=== PATIENT | male | born 1945 | race Caucasian/White ===

== ENCOUNTER → 2017-01-25 | Outpatient (CLI) | payer BC, MEDICARE ==
[~2017-01-25] MED LIST: ACYC800T PO; ASPI-914 PO; ATOR40TA PO; CLOP75TA PO; LISI2.5T91 PO; METH750T3 PO; METO-482 PO
--- NOTE | 2017-01-25 16:58 | DI ---
EXAM: US VENOUS DUPLEX, LOWER EXT LT LOCATION OF DICTATION: [place] HISTORY: ITS.REASON: M79.89 Other specified soft tissue disorders COMPARISON: No prior studies available for comparison. TECHNIQUE: Multiple real-time grayscale sonographic images were obtained of the left lower extremity with color flow and spectral analysis. FINDINGS: The left common femoral, femoral, deep femoral, popliteal, posterior tibial, and peroneal veins are widely patent without filling defects. These vessels demonstrate normal response to augmentation and compression. There are no abnormal fluid collections within the surrounding soft tissues. IMPRESSION: No evidence for left lower extremity deep venous thrombosis. .
== END ==
LOC: IMA 15:29
DX: M79.89 Other specified soft tissue disorders (principal)

== ENCOUNTER 2017-02-08 12:15 | Inpatient (IN) | payer MEDICARE, BC ==
[~2017-02-08] VITALS: Ht 175.3 cm; Wt 117.2 kg
[~2017-02-08 12:15] MED LIST changes: -CHOL100055 PO; -CINN500C14 PO; -CLOP75TA33 PO; -FURO20TA4 PO; -HYDR-3995 PO; -LISI2.5T2 PO; -METO25TA6 PO; -MULT1TAB69 PO; -SODI1TAB3 PO
--- OUTSIDE RECORDS SUMMARY | 2017-02-08 12:19 | XMS REPORT | Continuity of Care Document ---
Author Author [facility] Organization [facility] Address Unknown Phone Unavailable Support Name Relationship Address Phone ZANA LE MD Caregiver [address] [place] [address] Unavailable ZANA LE MD Caregiver [address] [place] [id number] Unavailable MARYBETH LARIOS MD Caregiver [address] [place] [address] [place] [address] Unavailable VALERIA MONTAÑO Next Of Kin [address] [place] [address] Insurance Providers Guarantor Reno Montaño Address [address] [place] [address] Email [email or web address] [email or web address] Medicare Part A Only Policy Number [id number] Subscriber's Name Reno Montaño Relationship 18 Self Effective Date 10 Payer [place] [employer] Policy Number [id number] Subscriber's Name Valeria Montaño Relationship 01 Spouse Group Number [id number] Effective Date 01 Advance Directives Directive Response Recorded Date/Time Ordered Resuscitation Status Full Code 10/07/16 7:19pm Resuscitation Documents on File No 10/07/16 10:26pm DPOA for Healthcare Only Y 10/08/16 7:31pm Living Will Yes 10/07/16 10:26pm Problems Active Problems Medical Problem Onset Date Status CAD (coronary artery disease) Unknown Chronic Dyslipidemia Unknown Chronic Herpes zoster 10/09/2016 Acute History of diverticulosis Unknown Hx of hydrocele Unknown Hypertension Unknown Chronic Hyponatremia Unknown Resolved Lumbosacral pain Unknown Acute Normocytic anemia Unknown Acute OA (osteoarthritis) Unknown Chronic Obesity (BMI 30-39.9) Unknown Chronic Overactive bladder Unknown Resolved Somatic dysfunction of spine, lumbar Unknown Acute Surgical Problem Onset Date Status History of discectomy Unknown Acute S/P spinal fusion Unknown Acute Medications Current Home Medications Medication Dose Units Route Directions Days Qty Instructions Start Date Acyclovir 800 Mg Tablet 800 Mg Oral 5 Times Daily 7 Days 35 Tablet Aspirin (Low Dose Aspirin Ec) 81 Mg Tablet. 1 Tab Oral Daily 30 Tablet 10/07/16 Atorvastatin Calcium (Lipitor) 40 Mg Tablet 1 Tab Oral Bedtime Clopidogrel Bisulfate (Plavix) 75 Mg Tablet 1 Tab Oral Daily 30 Tablet 10/12/16 Lisinopril (Zestril) 2.5 Mg Tablet 1 Tab Oral Daily 04/28/16 Methocarbamol 750 Mg Tablet 750 Mg Oral Three Times A Day Take 1 tablet, by mouth, 3 times a day. 10/07/16 Metoprolol Tartrate (Lopressor) 50 Mg Tablet 12.5 Mg Oral Twice A Day 04/28/16 Past Home Medications Medication Directions Ordered Status Aspirin 81 Mg Tab.chew, 81 Mg Oral Daily 01/04/12 Discontinued Cholecalciferol (Vitamin D3) (Vitamin D-400) 400 Unit Tablet, 1 Tab Oral Daily 04/28/16 Discontinued Cinnamon Bark (Cinnamon) 500 Mg Capsule, 500 Mg Oral Daily 01/04/12 Discontinued Ciprofloxacin Hcl (Cipro) 500 Mg Tablet, 500 Mg Oral Every 12 Hours 05/01/16 Discontinued Clopidogrel Bisulfate (Plavix) 75 Mg Tablet, 1 Tab Oral Daily 04/29/16 Discontinued Enoxaparin Sodium (Lovenox) 120 Mg/0.8 Ml Inj, 1 Unit Sub-Q Daily 04/29/16 Discontinued Hydrocodone/Acetaminophen ([place] 10-325 Tablet) 10-325 Tablet, 1 Tab Oral Every 4-6 Hours as needed for Pain 10/07/16 Discontinued Hydrocodone/Apap 7.5/325 Mg ([place] 7.5-325 Tablet) 7.5-325 Tablet, 1-2 Tab Oral Every 4-6 Hours 05/01/16 Discontinued Nitroglycerin (Nitrostat) 0.4 Mg Tablet, 0.4 Mg Sublingual Q5mprn 04/28/16 Discontinued Tadalafil (Cialis) 5 Mg Tablet, 1 Tab Oral Daily 04/28/16 Discontinued Social History Social History Problem Response Recorded Date/Time Onset Date Status Reason for Hospitalization postop pain, strengthening, skin rash 10/12/2016 6 :01pm Not Applicable Not Applicable Hx Substance Use No 01/04/2012 9:20am Not Applicable Not Applicable Hx Alcohol Use No 04/30/2016 10:21am Not Applicable Not Applicable Has the pt used tobacco in the last 12 months No 10/07/2016 10:28pm Not Applicable Not Applicable Query Response Start Date Stop Date Smoking Status Former smoker Hospital Discharge Instructions Instructions: Care Instructions: Reason for Hospitalization: postop pain, strengthening, skin rash I was in the hospital because (patient own words): Cause I had a pinched nerve and they fastened my vertebre. Discharge Diet: regular Discharge Activity: As tolerated Follow Up Appointments: Dr. Patricia Larios on 10/27/16 at 1:45 pm for Hosp. follow-up. [address] [place] [address] Ila Ramos on 10/19/16 at 11:30 am for [address] check. [facility] [address] [place] [address]. . Pending Lab / Results: Will be notified Patient Instructions: Follow-up as instructed Wound/Incision Care: May take bandage off at home, call daily to IRU at [phone] to check on culture results. Pain Management/Treatment: Patient has pain medication at home, declined prescription on discharge. Expected Signs/Symptoms: Pain, fatigue Notify Physician If: Fever During Business Hours:: Please call the physician's office at office After Business Hours:: Please call [phone] and have the switchboard operator receptionist page the physician. Condition at time of discharge: Good Plan of Care Discharge Date 10/12/16 6:20pm Disposition 01 DISCHARGED HOME, SELF-CARE Instructions/Education Provided Venu Coronary Artery Bypass Grafting Prescriptions See Medication Section Additional Instructions/Education Follow up with your regular physician next week Please call if you have any questions or concerns Care Plan and Goals See Discharge Instructions Section Functional Status Query Response Date Recorded Mobility Status Ambulatory w/assist October 12, 2016 6:01pm Assistive Devices Front Wheeled Walker October 12, 2016 6:01pm Activity Limitations Weakness October 12, 2016 6:01pm Feeding Ability Independent October 12, 2016 6:01pm Toileting Ability Assist October 10, 2016 5:25pm Grooming Ability Assist October 12, 2016 6:01pm Dressing Ability Assist October 12, 2016 6:01pm Driving Ability Dependent October 12, 2016 6:01pm Housework Ability Dependent October 12, 2016 6:01pm Meal Preparation Ability Dependent October 12, 2016 6:01pm Stair Climbing Ability Assist October 12, 2016 6:01pm Ability to complete ADL's impeded by Impaired Mobility October 12, 2016 6:01pm Cognitive/Perceptual Impairments Impaired vision October 12, 2016 6:01pm Visual Assistive Devices Glasses With patient October 10, 2016 5:25pm Preferred Method of Learning Reading Demonstration Listening October 10, 2016 5:25pm Allergies, Adverse Reactions, Alerts Allergen Type Severity Reaction Status Last Updated Morphine Adverse Reaction Unknown LETHARGY Active 04/29/16 Amoxicillin Allergy Unknown rash Active 04/29/16 Immunizations Query Response on File Recorded Date/Time Hx Influenza Vaccination Yes 10/07/16 10:28pm Hx Pneumococcal Vaccination Yes 10/07/16 10:28pm Hx Influenza Vaccination Yes 10/07/16 10:28pm Influenza Vaccine Hx FALL 201405/01/16 7:45am Vital Signs Acute Vital Signs Vital Response Date/Time Temperature (Fahrenheit) 98.2 deg F (96.8 - 99.1) 10/12/2016 6:46pm Temperature (Calculated Celsius) 36.66601 degrees C (36.0 - 37.3) 10/12/2016 6:46pm Pulse Rate (adult) 93 bpm (60 - 100) 10/12/2016 6:46pm Respiratory Rate 16 breaths/min (10 - 20) 10/12/2016 6:46pm O2 Sat by Pulse Oximetry 96 % (90 - 100) 10/12/2016 6:46pm Oxygen Delivery Method Room Air 10/11/2016 4:59pm Oxygen Delivery Method Room Air 10/12/2016 6:46pm Oxygen Flow Rate 1.00 L/min 10/12/2016 2:44am Fraction of Inspired Oxygen (FIO2) 28 % 10/11/2016 4:57am Blood Pressure 150/71 mm Hg 10/12/2016 6:46pm Blood Pressure Source Automatic Cuff 10/12/2016 6:46pm Height (Feet) 5 feet 10/12/2016 3:15pm Height (Inches) 10.00 inches 10/12/2016 3:15pm Weight (Kilograms) 119.000 kg 10/07/2016 8:08pm Body Mass Index (BMI) 37.6 10/07/2016 8:08pm Results Laboratory Results Test Name Result Units Flags Reference Collection Date/Time Result Date/ Time Comments White Blood Count 7.8 T/MM3 4.5-11.0 10/10/2016 5:40am 10/10/2016 5: 53am Red Blood Count 3.47 M/MM3 L 4.50-5.90 10/10/2016 5:40am 10/10/2016 5: 53am Hemoglobin 10.2 GM/DL L 13.5-17.5 10/10/2016 5:40am 10/10/2016 5:53am Hematocrit 31.0 % L 41-53 10/10/2016 5:40am 10/10/2016 5:53am Mean Corpuscular Volume 89.3 UM3 80-100 10/10/2016 5:40am 10/10/2016 5: 53am Mean Corpuscular Hemoglobin 29.4 UUG 26-34 10/10/2016 5:40am 2015 5:53am Mean Corpuscular Hemoglobin Concent 32.9 GM/DL 31-37 10/10/2016 5:40am 10/10/2016 5:53am RDW Standard Deviation 44.2 FL 36.9-50.2 10/10/2016 5:40am 10/10/2016 5 :53am Platelet Count 198 T/MM3 130-400 10/10/2016 5:40am 10/10/2016 5:53am Mean Platelet Volume 9.4 UM3 9.4-12.4 10/10/2016 5:40am 10/10/2016 5: 53am Neutrophils (%) (Auto) 73.3 % H 33-66 10/10/2016 5:40am 10/10/2016 5: 53am Lymphocytes (%) (Auto) 11.7 % L 23-45 10/10/2016 5:40am 10/10/2016 5: 53am Monocytes (%) (Auto) 11.4 % H 0-9.0 10/10/2016 5:40am 10/10/2016 5:53am Eosinophils (%) (Auto) 2.9 % 0-4 10/10/2016 5:40am 10/10/2016 5:53am Basophils (%) (Auto) 0.3 % 0-2 10/10/2016 5:40am 10/10/2016 5:53am Immature Granulocyte % (Auto) 0.4 % 0.0-0.5 10/10/2016 5:40am 2015 5:53am Absolute Neutrophils (auto) 5.8 T/MM3 1.8-7.7 10/10/2016 5:40am 2015 5:53am Absolute Lymphocytes (auto) 0.9 T/MM3 L 1-4.8 10/10/2016 5:40am 2015 5:53am Absolute Monocytes (auto) 0.9 T/MM3 H 0-0.8 10/10/2016 5:40am 2015 5:53am Absolute Eosinophils (auto) 0.2 T/MM3 0-0.5 10/10/2016 5:40am 2015 5:53am Absolute Basophils (auto) 0.0 T/MM3 0-0.2 10/10/2016 5:40am 10/10/2016 5:53am Absolute Immature Granulocyte (auto 0.03 T/MM3 0.00-0.03 10/10/2016 5: 40am 10/10/2016 5:53am Icterus Index < 2 0-7 10/10/2016 5:40am 10/10/2016 6:05am Chemistry Specimen Hemolysis < 15 0-25 10/10/2016 5:40am 10/10/2016 6 :05am 0-25: Specimen Exhibited No Hemolysis. Turbidity < 20 0-20 10/10/2016 5:40am 10/10/2016 6:05am Sodium Level 135 MEQ/L 134-144 10/10/2016 5:40am 10/10/2016 6:26am Potassium Level 4.3 MEQ/L 3.6-5 10/10/2016 5:40am 10/10/2016 6:26am Chloride Level 93 MEQ/L L 98-107 10/10/2016 5:40am 10/10/2016 6:26am Carbon Dioxide Level 36 MEQ/L H 22-30 10/10/2016 5:40am 10/10/2016 6: 05am Anion Gap 6 MEQ/L 5-15 10/10/2016 5:40am 10/10/2016 6:26am Blood Urea Nitrogen 9.0 MG/DL 9-10/10/2016 5:40am 10/10/2016 6:05am Creatinine 0.5 MG/DL L 0.8-1.5 10/10/2016 5:40am 10/10/2016 6:05am BUN/Creatinine Ratio 18 RATIO 6-10/10/2016 5:40am 10/10/2016 6:05am Glomerular Filtration Rate Calc 164 10/10/2016 5:40am 10/10/2016 6: 05am Glucose Level 109 MG/DL 75-110 10/10/2016 5:40am 10/10/2016 6:05am Calculated Osmolality 260 MOSM/KG L 261-280 10/10/2016 5:40am 2015 6:26am Calcium Level 8.2 MG/DL L 8.4-10.2 10/10/2016 5:40am 10/10/2016 6:05am Varicella-Zoster Virus Source VARDNARS 10/10/2016 7:00pm 2015 12:39pm Varicella-Zoster PCR, CSF/Dermal performed at [facility], [address] [place] [address] Die Drawing Checker Varun Ross MD Name: RENO MONTAÑO Unit #: [id number] : 1945 Sex: M DISCHARGE SUMMARY Admit Date: 10/07/16 Report #: [id number] [facility] General Date Date DATE: 10/12/16 TIME: 16:54 Attending Physician Zana Le MD Admitting Physician Zana Le MD Consulting Physician Ronen Martini MD Admitting Diagnosis HTN, Indwelling bernal Discharge Diagnosis Status post lumbar fusion, hypertension, rash unknown origin History of Present Illness 71-year-old male status post L2-L5 laminectomy and L5-S1 fusion due to progressive weakness and pain in left leg and foot. He was accepted for IRU treatment after evaluation due to significant postop weakness, coronary artery disease, hypertension. He has spinal cord dysfunction due to issues prior to the surgery and is in need of close medical and physical/occupational therapy supervision during recovery. Committed to 3 hours a day of therapy Hospital Course 10/09/2016 Patient unfortunately appears to have had an outbreak of shingles. I just physical therapy if needed based on contact precautions, although I don't see any need beyond that at this point. However we'll speak with infection control. We'll increased pain medication if needed. Zana Le M.D. 10/10/16 Obtain viral varicella culture of rash to evaluate if this is a shingles type of lesion. It is somewhat atypical as patient does not have any discomfort to this area. also verbalizes that she has a similar area on her Botox that is intermittent At this time we will continue with acyclovir 800 milligrams 5 times a day. Continue on precautions today will discuss further with infectious disease tomorrow regarding patient's ability to to leave the room for PT. Have asked nursing staff to keep rash covered at all times and change dressing daily. Continue to encourage work with PT and OT for ongoing strengthening. 10/11/16 Have nursing staff keep dressing over vesicles on right buttock. May change dressing daily. Viral culture swab pending results.Spoke with infectious disease and patient is able to be out of room for PT/OT as long as vesicles are closed and covered. Will continue with treatment of acyclovir 800 milligrams 5 times a day. Blood pressure remains stable. Continue with [place] and Robaxin for pain control. Continue to encourage work with PT and OT for ongoing strengthening. 10/12/2016 Still awaiting PCR result from varicella-zoster swab. Uncertain if this is shingles outbreak or not, but will follow precautions until documented other way. Patient is doing well with physical therapy continues to cooperate and improve. Zana Le M.D. Problems: Code Status Full Code Home Meds Reported Medications Methocarbamol (Methocarbamol) 750 Mg Tablet, 750 MG PO TID, TAB Take 1 tablet, by mouth, 3 times a day. 10/07/16 Hydrocodone/Acetaminophen ([place] 10-325 Tablet) 10-325 Tablet, 1 TAB PO Q4-6H Y for PAIN, TAB 10/07/16 Aspirin *EC* (Low Dose Aspirin EC) 81 Mg Tablet.dr, 1 TAB PO DAILY, #30 TAB 3 Refills 10/07/16 Clopidogrel Bisulfate (Plavix) 75 Mg Tablet, 1 TAB PO DAILY, TAB 04/29/16 Lisinopril (Zestril) 2.5 Mg Tablet, 1 TAB PO DAILY, TAB 04/28/16 Metoprolol Tartrate (Lopressor) 50 Mg Tablet, 12.5 MG PO BID 04/28/16 Atorvastatin Calcium (Lipitor) 40 Mg Tablet, 1 TAB PO HS, TAB 04/28/16 Discontinued Reported Medications Enoxaparin Sodium (Lovenox) 120 Mg/0.8 Ml Inj, 1 UNIT SQ DAILY 04/29/16 Cholecalciferol (Vitamin D3) (Vitamin D-400) 400 Unit Tablet, 1 TAB PO DAILY 04/28/16 Nitroglycerin (Nitrostat) 0.4 Mg Tablet, 0.4 MG SL Q5MPRN, TAB 04/28/16 Tadalafil (Cialis) 5 Mg Tablet, 1 TAB PO DAILY 04/28/16 Cinnamon Bark (Cinnamon) 500 Mg Capsule, 500 MG PO DAILY 01/04/12 Discontinued Scripts Hydrocodone/Apap 7.5/325 Mg ([place] 7.5-325 Tablet) 7.5-325 Tablet, 1-2 TAB PO Q4 -6H, #30 TAB Prov:DINORAH TAN APRN, PHD 05/01/16 Ciprofloxacin HCl (Cipro) 500 Mg Tablet, 500 MG PO Q12HR for 10 Days, #20 TAB Prov:DINORAH TAN APRN, PHD 05/01/16 Discharge Disposition Stable, discharged to home ZANA LE MD Oct 12, 2016 16:55 Procedures Procedure Status Date Provider(s) CT LUMBAR SPINE W/O DYE Completed 09/06/16 X-RAY EXAM L-S SPINE 2/3 VWS Completed 09/28/16 Encounters Encounter Location Arrival/Admit Date Discharge/Depart Date Attending Provider Discharged Inpatient [facility] 10/07/16 5:05pm 10/12/16 6:20pm ZANA LE MD Registered [facility] 09/28/16 2:31pm BARI RAMOS Registered [facility] 09/06/16 12:41pm BARI RAMOS
--- OUTSIDE RECORDS SUMMARY | 2017-02-08 12:19 | XMS REPORT | Referral Summary ---
Author Author [facility] Organization [facility] Address Unknown Phone Unavailable Care Team Providers Care Gas Leak Inspector Name Role Phone Kiko Larios Primary Care Physician [phone] Encounter [facility] [id number] Date(s): 09/07/16 - 09/07/16 [facility] [address] [place] [address]- Discharge Diagnosis: Herniated lumbar intervertebral disc Discharge Diagnosis: Central spinal stenosis Discharge Disposition: 01-Home or Self Care Attending Physician: Isacc Larios MD Admitting Physician: Isacc Larios MD Referring Physician: Noam Anthony MD Vital Signs Most recent to 1 oldest [Reference Range]: Blood Pressure 154/76 mmHg [90-140/60-90 mmHg] *HI* (09/07/16 9:13 AM) Problem List Condition Effective Dates Status Health Status Informant Acute Active pain(Confirmed) At risk for Active infection(Confirmed) 1 Cellulitis of Active elbow(Confirmed) Chicken Resolved pox(Confirmed) Diverticulosis of Resolved colon(Confirmed) Hydrocele(Confirmed) Resolved Hyperlipidemia(Confi Resolved rmed) Impaired skin Active integrity(Confirmed) 2 Inguinal Resolved hernia(Confirmed) Obesity(Confirmed) Active patient Overactive Resolved bladder(Confirmed) Overweight(Confirmed Resolved ) Herniated lumbar Active intervertebral disc(Confirmed) Encounter for Active prostate cancer screening(Confirmed) CAD (coronary artery Active disease) of artery bypass graft(Confirmed) Central spinal Active stenosis(Confirmed) 1Problem added automatically by system based on initiation of At Risk for Infection in Nutrition Plan of Care 2Problem added automatically by system based on initiation of Impaired Skin Integrity Plan of Care Allergies, Adverse Reactions, Alerts Substance Reaction Severity Status amoxicillin rash Active Medications aspirin 81 mg oral tablet, chewable 1 tabs, Oral, Daily, 0 Refill(s) Start Date: 07/19/14 Status: Ordered atorvastatin 40 mg oral tablet See Instructions, TAKE ONE TABLET BY MOUTH DAILY, # 90 tabs, 1 Refill(s), eRx: [facility] #[id number], TAKE ONE TABLET BY MOUTH DAILY Start Date: 09/01/16 Status: Ordered cinnamon mg, Oral, Daily, 0 Refill(s) Start Date: 05/28/14 Status: Ordered clopidogrel 75 mg oral tablet 75 mg 1 tabs, Oral, Daily, 0 Refill(s) Start Date: 05/24/16 Status: Ordered Lopressor 12.5 mg, Oral, BID, 0 Refill(s) Start Date: 07/19/14 Status: Ordered methocarbamol 750 mg oral tablet See Instructions, TAKE ONE TABLET BY MOUTH THREE TIMES A DAY, # 60 tabs, eRx: [facility] #[id number], TAKE ONE TABLET BY MOUTH THREE TIMES A DAY Start Date: 08/18/16 Status: Ordered Nitrostat 0.4 mg sublingual tablet 1 tabs, SubLingual, q5min, Angina/Chest Pain, 0 Refill(s) Start Date: 07/19/14 Status: Ordered [place] 10 mg-325 mg oral tablet 1 tabs, Oral, q4hr, as needed for pain, # 120 tabs, 0 Refill(s) Start Date: 08/25/16 Status: Ordered Vitamin B12 Oral, Daily, 0 Refill(s) Start Date: 05/28/14 Status: Ordered Vitamin D with Minerals oral tablet tabs, Oral, Daily, 0 Refill(s) Start Date: 05/28/14 Status: Ordered Vitamin D3 1000 intl units oral tablet 1,000 Intl_Units 1 tabs, Oral, Daily, # 30 tabs, 0 Refill(s) Start Date: 08/03/16 Status: Ordered Zestril 2.5 mg oral tablet 1 tabs, Oral, Daily, 0 Refill(s) Start Date: 07/19/14 Status: Ordered Results No data available for this section Immunizations Vaccine Date Refusal Reason tetanus/diphth/pertuss (Tdap) adult/adol1 07/23/15 influenza virus vaccine, inactivated2 07/15/15 influenza virus vaccine, live 08/15/13 influenza virus vaccine, live 12/01/12 pneumococcal 13-valent conjugate vaccine3 07/15/15 tetanus-diphth toxoids (Td) adult/adol 10/25/94 zoster vaccine live 09/20/13 1Location History: [facility] 2Location History: [facility] 3Location History: [facility] Procedures Procedure Date Related Diagnosis Body Site Colonoscopy1 01/06/12 Adenoidectomy Circumcision Knee replacement Knee replacement Left Tonsillectomy 1Normal few scattered diverticula with in sigmoid repeat in 10 yrs Social History Social History Type Response Smoking Status Former smoker; Type: Cigarettes Assessment and Plan No data available for this section
--- OUTSIDE RECORDS SUMMARY | 2017-02-08 12:19 | XMS REPORT | Continuity of Care Document ---
Author Author [facility] Organization [facility] Address Unknown Phone Unavailable Allergies Active Description Code Type Severity Reaction Onset Reported/Identified Relationship to Patient Clinical Status Yes amoxicillin NKMA N/A rash 03/14/2014 Yes AMOXICILLIN 86752 Skin Rashes/Hives 09/29/2016 Medications Medication Packaging Start Date Stop Date Route Dosage Sig * DONT RECONCILE--CHANGE PENDING EA 09/30/2016 10/04/2016 PO PRN LACTATED RINGERS 1000 ML IV SOLN BAG 10/04/2016 10/04/2016 IV PRE-OP ceFAZolin 1GM VIAL VL 10/04/2016 10/04/2016 IVP PRE-OP BACITRACIN 500 UNIT/GM OINT [0.9GM U.D.] PKT 10/04/20162015 TOP ONCE SODIUM CHLORIDE PF 0.9% 10ML INJ VL 10/04/2016 10/04/2016 IVP ONCE LACTATED RINGERS 1000 ML IV SOLN BAG 10/04/2016 10/04/2016 IV ONCE THROMBIN 5000 UNIT VIAL VL 10/04/2016 10/04/2016 TOP ONCE SODIUM CHLORIDE 0.9% 1000ML IRRIG SOLN EA 10/04/20162015 IRR ONCE VANCOMYCIN 1GM INJ VL 10/04/2016 10/04/2016 PB ONCE ceFAZolin 1GM VIAL VL 10/04/2016 10/04/2016 IVP ONCE BUPIVACAINE W/ EPI 0.25% INJ [10 ML] VL 10/04/2016 10/04/2016 ID ONCE fentaNYL 100 MCG/2ML INJ AMP 10/04/2016 10/04/2016 IV PRE-OP * Ready to Reconcile EA 10/04/2016 10/04/2016 PO ASDIR SODIUM CHLORIDE 0.9% 10ML FLUSH SYRINGE SYR 10/04/20162016 IVP BID&0900,2100 POLYETHYLENE GLYCOL 17GM PKT PKT 10/04/2016 10/04/2017 PO QD& 0900 DOCUSATE SODIUM 100MG CAPSULE CAP 10/04/2016 10/04/2017 PO BID& 0900,2100 THROMBIN 5000 UNIT VIAL VL 10/04/2016 10/04/2016 TOP ONCE BUPIVACAINE W/ EPI 0.25% INJ [10 ML] VL 10/04/2016 10/04/2016 ID ONCE hydroMORPHONE 2MG/1ML INJ ML 10/04/2016 10/04/2016 IV POST-OP NALOXONE 0.4MG/1ML VIAL VL 10/04/2016 10/04/2016 IVP ONCE ALBUTEROL SULFATE 2.5MG/3ML VL 10/04/2016 10/04/2016 AER ONCE GLYCOPYRROLATE 0.2 MG/1ML INJ VL 10/04/2016 10/04/2016 IVP ONCE NEOSTIGMINE 10MG/10ML INJ [1:1000] VL 10/04/2016 10/04/2016 IVP ONCE fentaNYL 250 MCG/5ML INJ AMP 10/04/2016 10/04/2016 IV ONCE LIDOCAINE 2% SYRINGE [100MG/5ML] SYR 10/04/2016 10/04/2016 IVP ONCE PROPOFOL 200MG/20ML INJ VL 10/04/2016 10/04/2016 IVP ONCE ONDANSETRON 4MG/2ML INJ VL 10/04/2016 10/04/2016 IVP ONCE ROCURONIUM 50MG/5ML INJ VL 10/04/2016 10/04/2016 IVP ONCE PHENYLEPHRINE 10 MG/1ML INJ VL 10/04/2016 10/04/2016 IVP ONCE ePHEDrine 20MG/2ML SYRINGE (COMPOUNDED) DOS 10/04/20162015 IVP ONCE SODIUM CHLORIDE 0.9% 10ML FLUSH SYRINGE SYR 10/04/20162016 IVP PRN SODIUM CHLORIDE 0.9% 5ML FLUSH SYRINGE SYR 10/04/20162016 IVP PRN SODIUM CHLORIDE 0.9% W/ KCL 20MEQ 1000ML IV SOLN BAG 10/04/2016 10/06/2016 IV 100ML/HR MORPHINE 30 MG / 30 ML OBSTETRICS TEACHER SYRINGE SYR 10/04/2016 10/06/2016 IV PRN MAGNESIUM HYDROXIDE 2400MG/30ML SUSP EA 10/04/2016 10/04/2017 PO PRN oxyCODONE IR 5MG TABLET TAB 10/04/2016 10/06/2016 PO [id number] BISACODYL 10MG SUPPOS. SUP 10/04/2016 10/04/2017 MN* PRN ONDANSETRON 4MG TABLET TAB 10/04/2016 10/04/2017 PO [id number] METOCLOPRAMIDE 10MG TABLET TAB 10/04/2016 10/04/2017 PO [id number] METHOCARBAMOL 750MG TABLET TAB 10/04/2016 10/04/2017 PO D6OIOQT diphenhydrAMINE 25MG CAPSULE CAP 10/04/2016 10/04/2017 PO Q6HPRN BISACODYL 5MG TABLET TAB 10/04/2016 10/04/2017 PO PRN ONDANSETRON 4MG/2ML INJ VL 10/04/2016 10/04/2017 IVP [id number] METOCLOPRAMIDE 10MG/2ML INJ VL 10/04/2016 10/04/2017 IVP [id number] NALOXONE 0.4MG/1ML VIAL VL 10/04/2016 10/04/2016 IV POST-OP ALBUTEROL SULFATE 2.5MG/3ML VL 10/04/2016 10/04/2016 AER POST- OP *LISINOPRIL 2.5MG TABLET 10/04/2016 10/04/2017 PO QD&0900 *ATORVASTATIN 40MG TABLET TAB 10/04/2016 10/04/2017 PO HS&2200 *METOPROLOL TARTRATE 25MG TABLET TAB 10/04/2016 10/04/2017 PO BID&0900,2100 *DOCUSATE SODIUM 100MG CAPSULE CAP 10/04/2016 10/04/2017 PO ASDIR ACETAMINOPHEN IV 1GM/100ML VL 10/04/2016 10/05/2016 PB Q6H&0000 ,0600,1200,1800 ceFAZolin 1GM VIAL VL 10/04/2016 10/04/2016 IVP Q6H&0000,0600, 1200,1800 LACTATED RINGERS 1000 ML IV SOLN BAG 10/04/2016 10/04/2016 IV ONCE LACTATED RINGERS 1000 ML IV SOLN BAG 10/04/2016 10/04/2016 IV PRE-OP ceFAZolin 1GM VIAL VL 10/04/2016 10/05/2016 IVP Q6H&0400,1000, 1600,2200 MAGNESIUM OXIDE 400MG TABLET TAB 10/05/2016 10/05/2017 PO BID& 0900,2100 ACETAMINOPHEN 325MG TABLET TAB 10/05/2016 10/05/2017 PO Q4HPRN ACETAMINOPHEN 325MG TABLET TAB 10/05/2016 10/05/2016 PO ONCE oxyCODONE/ACETAMINOPHEN 5-325 MG TABLET TAB 10/06/20162016 PO [id number] MORPHINE 2 MG/1ML SYRINGE ML 10/06/2016 10/06/2017 IVP [id number] *LISINOPRIL 10MG TABLET TAB 10/30/2016 10/04/2016 PO QD&0900 *HYDROcodone/ACETAMINOPHEN 10-325 MG TABLET TAB 10/30/2016 PO Q4-6HPRN *ASPIRIN EC 81MG TABLET TAB 10/30/2016 10/30/2017 PO QD&0900 *OTC/HERBAL SUPPLEMENTS EA 10/30/2016 10/30/2017 PO ASDIR *ATORVASTATIN 40MG TABLET TAB 10/30/2016 10/04/2016 PO QD&0900 *METOPROLOL TARTRATE 25MG TABLET TAB 10/30/2016 10/04/2016 PO BID&0900,2100 *METHOCARBAMOL 750MG TABLET TAB 10/30/2016 10/30/2017 PO TID& 0900,1500,2200 *CLOPIDOGREL 75MG TABLET TAB 10/30/2016 10/30/2017 PO QD&0900 *LISINOPRIL 2.5MG TABLET 11/03/2016 10/04/2016 PO QD&0900 *ATORVASTATIN 40MG TABLET TAB 11/03/2016 10/04/2016 PO HS&2200 *DOCUSATE SODIUM 100MG CAPSULE CAP 11/03/2016 10/04/2016 PO ASDIR Problems Date Dx Coded Attending Type Code Diagnosis Diagnosed By 10/07/2016 KAMILLE RAMOS DF E66.9 Obesity, unspecified 10/07/2016 KAMILLE RAMOS DF E78.5 Hyperlipidemia, unspecified 10/07/2016 KAMILLE RAMOS DF E83.42 Hypomagnesemia 10/07/2016 KAMILLE RAMOS DF I10 Essential (primary) hypertension 10/07/2016 KAMILLE RAMOS I25.811 Atherosclerosis of [place] coronary arter 10/07/2016 KAMILLE RAMOS DF M19.90 Unspecified osteoarthritis, unspecified 10/07/2016 KAMILLE RAMOS DF M43.17 Spondylolisthesis, lumbosacral region 10/07/2016 RICHARD, KAMILLE DF M48.06 Spinal stenosis, lumbar region 10/07/2016 [facility], KAMILLE DF M51.26 Other intervertebral disc displacement, 10/07/2016 RICHARD, KAMILLE DF M51.27 Other intervertebral disc displacement, 10/07/2016 RICHARD, KAMILLE DF R60.9 Edema, unspecified 10/07/2016 RICHARD, KAMILLE DF 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 10/07/2016 [facility], KAMILLE DF Z79.899 Other fci (current) drug therapy 10/07/2016 [facility], KAMILLE DF Z95.5 Presence of coronary angioplasty implant 10/07/2016 [facility], KAMILLE DF Z96.652 Presence of left artificial knee joint Procedures Code Description Performed By Performed On [id number] Release Lumbar Nerve, Open Approach [facility] 10/04/2016 [id number] Excision of Lumbar Vertebral Disc, Open [facility] 10/04/2016 [id number] Fusion of Lumbosacral Joint, Posterior A [facility] 10/04/2016 Results Test Result Range Comprehensive metabolic 2000 panel - Serum or Plasma - 10/05/16 04:35 Glucose [Mass/volume] in Serum or Plasma 117 mg/dl 64 - 112 Urea nitrogen [Mass/volume] in Serum or Plasma 9.0 mg/dl 8.4 - 25.8 Creatinine [Mass/volume] in Serum or Plasma 0.6 mg/dl 0.7 - 1.2 Urea/Creatinine [Mass Ratio] in Serum or Plasma 15.0 6 - 26 Calcium [Mass/volume] in Serum or Plasma 7.74 mg/dl 8.30 - 10.60 Sodium [Moles/volume] in Serum or Plasma 132 mmol/L 135 - 151 Potassium [Moles/volume] in Serum or Plasma 4.8 mmol/L 3.5 - 5.0 Chloride [Moles/volume] in Serum or Plasma 96 mmol/L 98 - 113 Protein [Mass/volume] in Serum or Plasma 5.3 gm/dl 6.2 - 8.0 Albumin [Mass/volume] in Serum or Plasma 3.3 gm/dl 3.5 - 5.2 Globulin [Mass/volume] in Serum 2.0 gm/dl 2-4 Albumin/Globulin [Mass Ratio] in Serum or Plasma 1.6 1.1-2.4 Alanine aminotransferase [Enzymatic activity/volume] in Serum or Plasma 19 U/L 0 - 55 Alkaline phosphatase [Enzymatic activity/volume] in Serum or Plasma 59 U/L 53 - 128 Bilirubin.total [Mass/volume] in Serum or Plasma 0.75 mg/dl 0.10 - 1.20 Carbon dioxide, total [Moles/volume] in Venous blood 30 mmol /L 23 - 34 Magnesium [Mass/volume] in Serum or Plasma - 10/05/16 04:35 Magnesium [Mass/volume] in Serum or Plasma 1.7 mg/dl 1.8 - 2.6 Message for Lab - 02/08/17 11:11 Message for Lab Done NA i-STAT Metabolic Panel WB - 02/08/17 11:24 BUN Venous 9 mg/dl 4-20 Calcium Ionized Venous 1.12 mmol/L 1.19- 1.41 Creatinine Venous 0.7 mg/dL 0.7-1.2 Glucose Venous 105 mg/dL 70-100 Potassium, WB 4.6 mmol/L 3.6-5.1 Sodium Venous 117 mmol/L 136-144 Total CO2 Venous 32 mmol/L 25-29 Venous CL 74 mmol/L 99-109 Encounters ACCT No. Visit Date/Time Discharge Status Pt. Type Provider Facility Loc./Unit Complaint [id number] 01/31/2017 08:41:00 2016 23:59:00 DIS Outpatient Aaliyah Coello [facility] [place] 4 DAY RCK LAB [id number] 01/25/2017 14:49:00 2016 23:59:00 DIS Outpatient Isacc Larios [facility] [place] Circulation problemsin left leg with swelling [id number] 10/27/2016 13:29:00 2015 23:59:00 DIS Outpatient Isacc Larios [facility] [place] TCPA [facility] 10.13.2016 SPINAL CORD DYSFUNCTION [id number] 09/07/2016 09:03:00 2015 23:59:00 DIS Outpatient Isacc Larios [facility] [place] TCPA PRE OP FOR BACK SURGERY [id number] 09/07/2016 00:01:00 2015 23:59:00 DIS Outpatient Isacc Larios [facility] Mur Card Pre op Z01.818 [id number] 08/03/2016 13:05:00 2015 23:59:00 DIS Outpatient Isacc Larios [facility] [place] MED CHK [id number] 06/25/2016 11:02:00 2015 23:59:00 DIS Outpatient Isacc Larios [facility] [place] tcpa lower back pain [id number] 05/24/2016 15:31:00 2015 23:59:00 DIS Outpatient Tanshahram Brett T [facility] [place] 2 week recheck [id number] 05/10/2016 15:18:00 2015 23:59:00 DIS Outpatient TanBrett omalley T [facility] [place] 1 week recheck [id number] 04/29/2016 09:12:00 2015 23:59:00 DIS Outpatient Isacc Larios [facility] [place] 40mg lovenox [id number] 04/27/2016 09:17:00 2015 23:59:00 DIS Outpatient Isacc Larios [facility] [place] 40mg lovenox [id number] 04/26/2016 09:25:00 2015 23:59:00 DIS Outpatient Isacc Larios [facility] [place] 40mg lovenox [id number] 04/22/2016 11:00:00 2015 23:59:00 DIS Outpatient Tanshahram Brett T [facility] [place] 2 week recheck from 5-26 [id number] 04/08/2016 14:14:00 2015 23:59:00 DIS Outpatient Tanshahram Brett T [facility] [place] ENLARGED TESTICLE [id number] 04/05/2016 13:07:00 2015 23:59:00 DIS Outpatient Isacc Larios [facility] [place] fatigue sleeping alot says not taking norco or cycloben [id number] 01/22/2016 09:29:00 2015 23:59:00 DIS Outpatient Larios, Isacc F [facility] [place] LOWER BACK PAIN [id number] 10/20/2015 14:46:00 2014 23:59:00 DIS Outpatient Aaliyah Coello [facility] [place] Back pain [id number] 10/07/2015 14:47:00 2014 23:59:00 DIS Outpatient Aaliyah Coello [facility] [place] muscle in hip [id number] 07/08/2015 15:11:00 2014 23:59:00 DIS Outpatient Isacc Larios [facility] [place] sore heel [id number] 06/25/2015 17:28:00 2014 23:59:00 DIS Outpatient Abhinav Dueñas [facility] IC LT ELBOW SWOLLEN AND HOT [id number] 12/05/2014 09:01:00 2014 23:59:00 DIS Outpatient Isacc Larios [facility] [place] med check/ cholesterol [id number] 02/08/2017 10:08:00 Document Registration [id number] 05/03/2016 13:05:00 ACT Outpatient Brett Gilmore [facility] [place] POST -OP [id number] 03/14/2015 09:34:00 Document Registration
--- NOTE | 2017-02-08 12:30 | NUR ---
SONJA JIMENEZ IN
--- NOTE | 2017-02-08 12:40 | ERPDOC ---
Departure Disposition Decision Date: Feb 08, 2017 Disposition Decision Time: 14:36 (YODIT AREVALO APRN) Disposition: 02 TO OBS [facility] [place] Impression Impression (JOHNYODIT WALLACE APRN) Impression: Primary Impression: Hypoxia Additional Impression: Hyponatremia Severity: Moderate (JAMES AREVALOA Jovita JIMENEZ) Condition: Stable Seen By: Mid-level only (YODIT AREVALO APRN) Referrals: MARYBETH JALLOH MD (Family) Problems/Meds/Labs Reviewed?: Yes Medications reviewed and manag: Yes (YODIT AREVALO APRN) Follow up care ordered?: Yes Mental Status: Alert (YODIT AREVALO APRN) HPI - Dyspnea General Chief Complaint: Dyspnea/Respdistress Stated Complaint: SHORTNESS OF BREATH Time Seen by Provider: 12:30 Source: patient Exam Limitations: no limitations (YODIT AREVALO APRN) Time Seen by Provider: 12:27 (HAI ALONZO MD) HPI - Dyspnea Initial Comments He presents to ER today for evaluation of SOA and low potassium and sodium. He has been being treated by Dr Ric OLVERA with Lasix to help pull fluid due to CHF. His sodium had been low down to 117 and K+ was low. They had been trying to replace potassium and sodium both orally but was not getting anywhere with this. He has had a cough with sputum production but denies any fever. Is SOA and is currently on O2 at 2L per NC with sats of 94%. Does not wear O2 at home. Was 86% on RA upon arrival to ER. Occurred At: home Onset/Timing: Gradual Severity: moderate Activities at Onset: none Associated Symptoms: cough, shortness of breath, DENIES: chest pain, diaphoresis, fever/chills, headaches, loss of appetite, malaise, nausea/vomiting , rash, seizure, syncope, weakness Aspirin Treatment Today: unknown Hx of Similar Symptoms: No (JAMES AREVALOA Jovita JIMENEZ) Allergies: Coded Allergies: amoxicillin (Verified Allergy, Unknown, rash, 02/08/17) morphine (Verified Adverse Reaction, Unknown, LETHARGY, 02/08/17) Past History Patient Surgical History 10/04/16- L5 laminectomy, multiple microdiscectomy, L5-S1 fusion Coronary artery stents-07/2014 (PTCA) Tonsillectomy Appendectomy. Knee replacement. inguinal hernia repair Angiographically of femoral and other lower extremity arteries- 07/2014 Inguinal hernia repair (NOLD,YODIT N ELASTIC ATTACHER CHAINSTITCH) Past Medical History Metabolic: hypercholesterolemia, hypertension Cardiac: CAD (NOLD,YODIT N ELASTIC ATTACHER CHAINSTITCH) Surgical History General: appendix, hernia, tonsils Joint: knee (NOLD,YODIT N ELASTIC ATTACHER CHAINSTITCH) Vaccines Hx Influenza Vaccination: Yes Hx Pneumococcal Vaccination: Yes (NOLD,YODIT N ELASTIC ATTACHER CHAINSTITCH) Social History Does patient use chewing tobac: No (NOLD,YODIT N ELASTIC ATTACHER CHAINSTITCH) Review of Systems Constitutional Constitutional: DENIES: chills, dizziness, fatigue, fever, weakness (NOLD, YODIT N ELASTIC ATTACHER CHAINSTITCH) Cardiovascular Cardiac: dyspnea on exertion, DENIES: chest pain, orthopnea Rhythm/Rate: DENIES: irregular beat, palpitations Vascular: pedal edema (bilateral LE) (NOLD,YODIT N ELASTIC ATTACHER CHAINSTITCH) Pulmonary Respiratory: cough, dyspnea, sputum, DENIES: pleuritic chest pain (NOLD,YODIT N ELASTIC ATTACHER CHAINSTITCH) GI Upper Abdomen: DENIES: nausea, pain, vomiting Lower Abdomen: DENIES: constipation, diarrhea, pain (NOLD,YODIT N ELASTIC ATTACHER CHAINSTITCH) Integumentary Skin: DENIES: rash (NOLD,YODIT N ELASTIC ATTACHER CHAINSTITCH) Neurological General: DENIES: headache, numbness, tingling, weakness (NOLD,YODIT N ELASTIC ATTACHER CHAINSTITCH) Physical Exam General General Nourishment: well nourished, well developed, appears stated age, no acute distress, adult General Body Habitus: well groomed (NOLD,YODIT N ELASTIC ATTACHER CHAINSTITCH) Vitals and Pain First Documented Vital Signs Date Time Temp Pulse Resp B/P Pulse Ox O2 Delivery O2 Flow Rate FiO2 02/08/17 12:20 98.1 60 36 181/81 86 Room Air 02/08/17 12:27 2.00 (HAI ALONZO MD) Vitals and Pain Weight: Kilograms: 118.000 Height (feet): 5 Height (inches): 10.00 Triage Pain Scale: (NOLD,YODIT N ELASTIC ATTACHER CHAINSTITCH) RN VS reviewed by Provider: Yes (NOLD,YODIT N ELASTIC ATTACHER CHAINSTITCH) Normal Exams: Neck: Full range of motion, without adenopathy, JVD, bruits or thyromegaly Abdomen: Bowel sounds positive, soft, non-tender, non-distended, no hepatosplenomegaly, masses or bruits noted Lymphatic: No lymphadenopathy, or lymphedema noted Integumentary: No rashes, hives, or bruising noted Neurologic: Patient is alert, and oriented Psychiatric: Patient exhibits, appropriate attention, emotion and affect (NOLD,YODIT N ELASTIC ATTACHER CHAINSTITCH) Respiratory (brief) Respiratory: FOUND: other (diminished throughout, is on 2L per NC and sats are 94%) (NOLD,YODIT N ELASTIC ATTACHER CHAINSTITCH) Cardiovascular (brief) Cardiac: FOUND: pedal edema (BLE-2+ up to calves), regular rate, regular rhythm Capillary Refill: <2 sec Pulses: all distal extremities, equal, strong (NOLD,YODIT N ELASTIC ATTACHER CHAINSTITCH) Differential Diagnoses Considering: Acute CT, Acute Respiratory Failure, CHF, Pneumonia, Pulmonary Edema, Other (electrolyte abnormality) (NOLD,YODIT N ELASTIC ATTACHER CHAINSTITCH) Progress Results/Orders Orders Procedure Category Date Status Time Probnp LAB 02/08/17 Complete 12:36 Troponin I W LAB 02/08/17 Complete Hemolysis Index EKG EKG 02/08/17 Taken Chest 1 View RAD 02/08/17 Resulted Cbc W/Auto LAB 02/08/17 Complete Diff-Reflex Manual Bmp - Basic Metabolic LAB 02/08/17 Complete Panel Iv Lock (Ed Only) EDM 02/08/17 Transmitted 12:36 Chest, Pa & Lateral RAD 02/08/[address] In Facility As: ADMIT 02/08/17 Transmitted (HAI ALONZO MD) Lab Results Laboratory Tests Test 02/08/17 12:45 White Blood Count 9.9T/MM3 Red Blood Count 5.28M/MM3 Hemoglobin 14.5GM/DL Hematocrit 40.6% Mean Corpuscular Volume 76.9UM3 Mean Corpuscular Hemoglobin 27.5UUG Mean Corpuscular Hemoglobin Concent 35.7GM/DL RDW Standard Deviation 39.9FL Platelet Count 160T/MM3 Mean Platelet Volume 9.9UM3 Immature Granulocyte % (Auto) 0.3% Neutrophils (%) (Auto) 75.2% Lymphocytes (%) (Auto) 13.7% Monocytes (%) (Auto) 10.0% Eosinophils (%) (Auto) 0.7% Basophils (%) (Auto) 0.1% Absolute Immature Granulocyte (auto 0.03T/MM3 Absolute Neutrophils (auto) 7.5T/MM3 Absolute Lymphocytes (auto) 1.4T/MM3 Absolute Monocytes (auto) 1.0T/MM3 Absolute Eosinophils (auto) 0.1T/MM3 Absolute Basophils (auto) 0.0T/MM3 Turbidity < 20 Sodium Level 117MEQ/L Potassium Level 5.1MEQ/L Chloride Level 78MEQ/L Carbon Dioxide Level 31MEQ/L Anion Gap 8MEQ/L Blood Urea Nitrogen 11.0MG/DL Creatinine 0.5MG/DL Glomerular Filtration Rate Calc 164 BUN/Creatinine Ratio 22RATIO Glucose Level 109MG/DL Calculated Osmolality 227MOSM/KG Calcium Level 8.6MG/DL Icterus Index < 2 Troponin I < 0.012ng/ml TT-Owa-Q-Type Natriuretic Peptide 451PG/ML Chemistry Specimen Hemolysis < 15 (HAI ALONZO MD) Lab Results Laboratory Tests Test 02/08/17 12:45 White Blood Count 9.9T/MM3 Red Blood Count 5.28M/MM3 Hemoglobin 14.5GM/DL Hematocrit 40.6% Mean Corpuscular Volume 76.9UM3 Mean Corpuscular Hemoglobin 27.5UUG Mean Corpuscular Hemoglobin Concent 35.7GM/DL RDW Standard Deviation 39.9FL Platelet Count 160T/MM3 Mean Platelet Volume 9.9UM3 Immature Granulocyte % (Auto) 0.3% Neutrophils (%) (Auto) 75.2% Lymphocytes (%) (Auto) 13.7% Monocytes (%) (Auto) 10.0% Eosinophils (%) (Auto) 0.7% Basophils (%) (Auto) 0.1% Absolute Immature Granulocyte (auto 0.03T/MM3 Absolute Neutrophils (auto) 7.5T/MM3 Absolute Lymphocytes (auto) 1.4T/MM3 Absolute Monocytes (auto) 1.0T/MM3 Absolute Eosinophils (auto) 0.1T/MM3 Absolute Basophils (auto) 0.0T/MM3 Turbidity < 20 Sodium Level 117MEQ/L Potassium Level 5.1MEQ/L Chloride Level 78MEQ/L Carbon Dioxide Level 31MEQ/L Anion Gap 8MEQ/L Blood Urea Nitrogen 11.0MG/DL Creatinine 0.5MG/DL Glomerular Filtration Rate Calc 164 BUN/Creatinine Ratio 22RATIO Glucose Level 109MG/DL Calculated Osmolality 227MOSM/KG Calcium Level 8.6MG/DL Icterus Index < 2 Troponin I < 0.012ng/ml MM-Gmw-C-Type Natriuretic Peptide 451PG/ML Chemistry Specimen Hemolysis < 15 (YODIT AREVALO APRN) Progress Progress CBC is normal. Na-117, K+-5.1, creatinine-0.5, troponin is negative. ProBNP is 451. O2 sats are 94% on 2L per NC. XRay does not show any focal pneumonia but films are limited due to patient size and portable view. Will obtain 2 view chest xray. Did speak with Dr Rios regarding hypoxia and critical sodium level. He will admit at this time. (YODIT AREVALO APRN) Progress Patient's history and exam discussed with BARBARA. Primary care provider also called me to give report prior to patient coming to the ER. They had spoken to the hospitalist and were asked to send the patient to the ER for workup. He has been known to have a low sodium which has not responded to outpatient treatment. Low sodium level is confirmed here. Other labs and EKG as well as imaging is reviewed. Agree with care given. (HAI ALONZO MD) EKG EKG : Rate: <60 (58) Rhythm: sinus [place]: normal QRS: normal Intervals: normal ST/T: normal Interpreted by: signing physician EKG Comments sinus arrhythmia -- no prior to compare (HAI ALONZO MD) Xray Xray : Xray: CXR Portable Interpretation: Normal (no acute cardiopulmonary disease), Reviewed Written Report (HAI ALONZO MD) YODIT AREVALO APRN Feb 08, 2017 12:40 HAI ALONZO MD Feb 08, 2017 14:28
--- OUTSIDE RECORDS SUMMARY | 2017-02-08 12:47 | XMS REPORT | Continuity of Care Document ---
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 SUP 10/04/2016 10/04/2017 ID* PRN ONDANSETRON 4MG TABLET TAB 10/04/2016 10/04/2017 PO [id number] METOCLOPRAMIDE 10MG TABLET TAB 10/04/2016 10/04/2017 PO Q8RITDAK METHOCARBAMOL 750MG TABLET TAB 10/04/2016 10/04/2017 PO [id number] diphenhydrAMINE 25MG CAPSULE CAP 10/04/2016 10/04/2017 PO Q6HPRN BISACODYL 5MG TABLET TAB 10/04/2016 10/04/2017 PO PRN ONDANSETRON 4MG/2ML INJ VL 10/04/2016 10/04/2017 IVP [id number] METOCLOPRAMIDE 10MG/2ML INJ VL 10/04/2016 10/04/2017 IVP [id number] NALOXONE 0.4MG/1ML VIAL VL 10/04/2016 10/04/2016 IV [...] oxyCODONE/ACETAMINOPHEN 5-325 MG TABLET TAB 10/06/20162016 PO R6WCFES MORPHINE 2 MG/1ML SYRINGE ML 10/06/2016 10/06/2017 IVP [id number] *LISINOPRIL 10MG TABLET TAB 10/30/2016 10/04/2016 PO [...] hypertension 10/07/2016 KAMILLE RAMOS I25.811 Atherosclerosis of [place] coronary arter 10/07/2016 KAMILLE RAMOS DF M19.90 Unspecified osteoarthritis, unspecified 10/07/2016 KAMILLE RAMOS DF M43.17 Spondylolisthesis, lumbosacral region 10/07/2016 RICHARD, KAMILLE DF M48.06 Spinal stenosis, lumbar region 10/07[facility] [place] M51.26 Other intervertebral disc displacement, 10/07/2016 RICHARD, KAMILLE DF M51.27 Other intervertebral disc displacement, 10/07/2016 RICHARD, KAMILLE DF R60.9 Edema, unspecified 10/07/2016 RICHARD, KAMILLE DF 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 10/07/2016 [facility] [place] DF Z79.899 Other jail (current) drug therapy 10/07/2016 [facility] [place] DF Z95.5 Presence of coronary angioplasty implant 10/07/2016 [facility] [place] DF Z96.652 Presence of left artificial knee joint Procedures Code Description Performed By Performed On 20ML9VH Release Lumbar Nerve, Open Approach [facility] 10/04/2016 [id number] Excision of Lumbar Vertebral Disc, Open [facility] 10/04/2016 [id number] Fusion of Lumbosacral Joint, Posterior A [facility] 10/04/2016 Results Test Result Range Comprehensive metabolic [...] Status Pt. Type Provider Facility Loc./Unit Complaint [id number] 01/31/2017 08:41:00 2016 23:59:00 DIS Outpatient Aaliyah Coello [facility] [place] 4 DAY RCK LAB [id number] 01/25/2017 14:49:00 2016 23:59:00 DIS Outpatient Isacc Larios [facility] [place] Circulation problemsin left leg with swelling [id number] 10/27/2016 13:29:00 2015 23:59:00 DIS Outpatient Isacc Larios [facility] TCPA [facility] 10.13.2016 SPINAL CORD DYSFUNCTION [id number] 09/07/2016 09:03:00 2015 23:59:00 DIS Outpatient Isacc Larios [facility] [place] TCPA PRE OP FOR BACK SURGERY [id number] 09/07/2016 00:01:00 2015 23:59:00 DIS Outpatient Isacc Larios [facility] Mur Card Pre op Z01.818 [id number] 08/03/2016 13:05:00 2015 23:59:00 DIS Outpatient Isacc Larios [facility] MED CHK [id number] 06/25/2016 11:02:00 2015 23:59:00 DIS Outpatient Isacc Larios [facility] tcpa lower back pain [id number] 05/24/2016 15:31:00 2015 23:59:00 DIS Outpatient Tanshahram Brett T [facility] [place] 2 week recheck [id number] 05/10/2016 15:18:00 2015 23:59:00 DIS Outpatient TanBrett omalley T [facility] [place] 1 week recheck [id number] 04/29/2016 09:12:00 2015 23:59:00 DIS Outpatient Isacc Larios [facility] 40mg lovenox [id number] 04/27/2016 09:17:00 2015 23:59:00 DIS Outpatient Isacc Larios [facility] [place] 40mg lovenox [id number] 04/26/2016 09:25:00 2015 23:59:00 DIS Outpatient Isacc Larios [facility] 40mg lovenox [id number] 04/22/2016 11:00:00 2015 23:59:00 DIS Outpatient Tanshahram Brett T [facility] [place] 2 week recheck from 5-26 [id number] 04/08/2016 14:14:00 2015 23:59:00 DIS Outpatient Tanshahram Brett T [facility] [place] ENLARGED TESTICLE [id number] 04/05/2016 13:07:00 2015 23:59:00 DIS Outpatient Isacc Larios [facility] fatigue sleeping alot says not taking norco or cycloben [id number] 01/22/2016 09:29:00 2015 23:59:00 DIS Outpatient Larios, Isacc F [facility] LOWER BACK PAIN [id number] 10/20/2015 14:46:00 2014 23:59:00 DIS Outpatient Aaliyah Coello [facility] Back pain [id number] 10/07/2015 14:47:00 2014 23:59:00 DIS Outpatient Aaliyah Coello [facility] muscle in hip [id number] 07/08/2015 15:11:00 2014 23:59:00 DIS Outpatient Isacc Larios [facility] sore heel [id number] 06/25/2015 17:28:00 2014 23:59:00 DIS Outpatient Abhinav Dueñas [facility] [place] LT ELBOW SWOLLEN AND HOT [id number] 12/05/2014 09:01:00 2014 23:59:00 DIS Outpatient Isacc Larios [facility] med check/ cholesterol [id number] 02/08/2017 10:08:00 Document Registration [id number] 05/03/2016 13:05:00 ACT Outpatient Brett Gilmore [facility] [place] POST -OP [id number] 03/14/2015 09:34:00 Document Registration
--- NOTE | 2017-02-08 12:55 | DI ---
Indication: ITS.REASON: dyspnea PROCEDURE: CHEST 1 VIEW: Encounter: Initial Comparison: Chest CT dated May 06, 2016 Findings: Lungs are grossly clear. No focal consolidative pneumonia, pleural effusion or pneumothorax. Somewhat limited visualization of the lung bases due to the portable technique and overlapping soft tissues. Cardiac silhouette is at the upper limits of normal. Mediastinal contours and pulmonary vascularity are grossly normal. Impression: No acute cardiopulmonary disease. PA and lateral chest radiographs may be helpful for further evaluation. .
[2017-02-08 12:59] LABS: BASOPHILS % (AUTO) 0.1 % (0-2); EOSINOPHILS # (AUTO) 0.1 T/MM3 (0-0.5); EOSINOPHILS % (AUTO) 0.7 % (0-4); HCT - HEMATOCRIT 40.6 % (41-53); HGB - HEMOGLOBIN 14.5 GM/DL (13.5-17.5); IMMATURE GRANULOCYTE # (AUTO) 0.03 T/MM3 (0.00-0.03); IMMATURE GRANULOCYTE % (AUTO) 0.3 % (0.0-0.5); LYMPHOCYTES # (AUTO) 1.4 T/MM3 (1-4.8); LYMPHOCYTES % (AUTO) 13.7 % (23-45); MEAN CORPUSCULAR HGB 27.5 UUG (26-34); MEAN CORPUSCULAR HGB CONC(MCHC 35.7 GM/DL (31-37); MEAN CORPUSCULAR VOLUME 76.9 UM3 (80-100); MEAN PLATELET VOLUME 9.9 UM3 (9.4-12.4); NEUTROPHILS #(AUTO)-ABSOLUTE 7.5 T/MM3 (1.8-7.7); NEUTROPHILS % (AUTO) 75.2 % (33-66); RED BLOOD COUNT 5.28 M/MM3 (4.50-5.90); WBC - WHITE BLOOD COUNT 9.9 T/MM3 (4.5-11.0)
[2017-02-08] MEDS ORDERED: CLOP75TA33 PO (13:08)
[2017-02-08] MEDS ORDERED: CHOL100055 PO (13:08)
[2017-02-08] MEDS ORDERED: MULT1TAB69 PO (13:08)
[2017-02-08] MEDS ORDERED: METO25TA6 PO (13:08)
[2017-02-08] MEDS ORDERED: CINN500C14 PO (13:08)
[2017-02-08] MEDS ORDERED: FURO20TA4 PO ×2 (13:08→13:12)
[2017-02-08] MEDS ORDERED: LISI2.5T2 PO (13:09)
[2017-02-08] MEDS ORDERED: HYDR-3995 PO (13:12)
[2017-02-08] MEDS ORDERED: SODI1TAB3 PO (13:12)
[2017-02-08 14:07] LABS: ANION GAP 8 MEQ/L (5-15); BUN/CREATININE RATIO 22 RATIO (6-26); CALCIUM 8.6 MG/DL (8.4-10.2); CHLORIDE 78 MEQ/L (98-107); CO2 - CARBON DIOXIDE 31 MEQ/L (22-30); CREATININE 0.5 MG/DL (0.8-1.5); GLOMERULAR FILTRATION RATE 164; GLUCOSE 109 MG/DL (75-110); POTASSIUM 5.1 MEQ/L (3.6-5)
[2017-02-08 14:25] LABS: SODIUM 117 MEQ/L (134-144)
--- NOTE | 2017-02-08 14:40 | NUR ---
TO XRY PER CART
--- OUTSIDE RECORDS SUMMARY | 2017-02-08 14:47 | XMS REPORT | Continuity of Care Document ---
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 SUP 10/04/2016 10/04/2017 MN* PRN ONDANSETRON 4MG TABLET TAB 10/04/2016 10/04/2017 PO A3KBUUMW METOCLOPRAMIDE 10MG TABLET TAB 10/04/2016 10/04/2017 PO R8BRINZG METHOCARBAMOL 750MG TABLET TAB 10/04/2016 10/04/2017 PO Y4HXPLL diphenhydrAMINE 25MG CAPSULE CAP 10/04/2016 10/04/2017 PO Q6HPRN BISACODYL 5MG TABLET TAB 10/04/2016 10/04/2017 PO PRN ONDANSETRON 4MG/2ML INJ VL 10/04/2016 10/04/2017 IVP [id number] METOCLOPRAMIDE 10MG/2ML INJ VL 10/04/2016 10/04/2017 IVP [id number] NALOXONE 0.4MG/1ML VIAL VL 10/04/2016 10/04/2016 IV [...] oxyCODONE/ACETAMINOPHEN 5-325 MG TABLET TAB 10/06/20162016 PO M0GFXTR MORPHINE 2 MG/1ML SYRINGE ML 10/06/2016 10/06/2017 IVP [id number] *LISINOPRIL 10MG TABLET TAB 10/30/2016 10/04/2016 PO [...] hypertension 10/07/2016 KAMILLE RAMOS I25.811 Atherosclerosis of [place] coronary arter 10/07/2016 KAMILLE RAMOS DF M19.90 Unspecified osteoarthritis, unspecified 10/07/2016 KAMILLE RAMOS DF M43.17 Spondylolisthesis, lumbosacral region 10/07/2016 RICHARD, KAMILLE DF M48.06 Spinal stenosis, lumbar region 10/07/[facility] [place] [facility] M51.26 Other intervertebral disc displacement, 10/07/2016 RICHARD, KAMILLE DF M51.27 Other intervertebral disc displacement, 10/07/2016 RICHARD, KAMILLE DF R60.9 Edema, unspecified 10/07/2016 RICHARD, KAMILLE DF 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 10/07/[facility] [place] DF Z79.899 Other jail (current) drug therapy 10/07/2016 [facility] [place] DF Z95.5 Presence of coronary angioplasty implant 10/07/2016 [facility] [place] DF Z96.652 Presence of left artificial knee joint Procedures Code Description Performed By Performed On 52PY2HX Release Lumbar Nerve, Open Approach [facility] 10/04/2016 [id number] Excision of Lumbar Vertebral Disc, Open [facility] 10/04/2016 [id number] Fusion of Lumbosacral Joint, Posterior A [facility] 10/04/2016 Results Test Result Range [...] Status Pt. Type Provider Facility Loc./Unit Complaint [id number] 01/31/2017 08:41:00 2016 23:59:00 DIS Outpatient Aaliyah Coello [facility] [place] 4 DAY RCK LAB [id number] 01/25/2017 14:49:00 2016 23:59:00 DIS Outpatient Isacc Larios [facility] [place] Circulation problemsin left leg with swelling [id number] 10/27/2016 13:29:00 2015 23:59:00 DIS Outpatient Isacc Larios [facility] TCPA [facility] 10.13.2016 SPINAL CORD DYSFUNCTION [id number] 09/07/2016 09:03:00 2015 23:59:00 DIS Outpatient Isacc Larios [facility] [place] TCPA PRE OP FOR BACK SURGERY [id number] 09/07/2016 00:01:00 2015 23:59:00 DIS Outpatient Isacc Larios [facility] Mur Card Pre op Z01.818 [id number] 08/03/2016 13:05:00 2015 23:59:00 DIS Outpatient Isacc Larios [facility] MED CHK [id number] 06/25/2016 11:02:00 2015 23:59:00 DIS Outpatient Isacc Larios [facility] tcpa lower back pain [id number] 05/24/2016 15:31:00 2015 23:59:00 DIS Outpatient Tanshahram Brett T [facility] [place] 2 week recheck [id number] 05/10/2016 15:18:00 2015 23:59:00 DIS Outpatient TanBrett omalley T [facility] [place] 1 week recheck [id number] 04/29/2016 09:12:00 2015 23:59:00 DIS Outpatient Isacc Larios [facility] 40mg lovenox [id number] 04/27/2016 09:17:00 2015 23:59:00 DIS Outpatient Isacc Larios [facility] 40mg lovenox [id number] 04/26/2016 09:25:00 2015 23:59:00 DIS Outpatient Isacc Larios [facility] 40mg lovenox [id number] 04/22/2016 11:00:00 2015 23:59:00 DIS Outpatient Tanshahram Brett T [facility] [place] 2 week recheck from 5-26 [id number] 04/08/2016 14:14:00 2015 23:59:00 DIS Outpatient Tanshahram Brett T [facility] [place] ENLARGED TESTICLE [id number] 04/05/2016 13:07:00 2015 23:59:00 DIS Outpatient Isacc Larios [facility] fatigue sleeping alot says not taking norco or cycloben [id number] 01/22/2016 09:29:00 2015 23:59:00 DIS Outpatient Larios, Isacc F [facility] [place] LOWER BACK PAIN [id number] 10/20/2015 14:46:00 2014 23:59:00 DIS Outpatient Aaliyah Coello [facility] Back pain [id number] 10/07/2015 14:47:00 2014 23:59:00 DIS Outpatient Aaliyah Coello [facility] muscle in hip [id number] 07/08/2015 15:11:00 2014 23:59:00 DIS Outpatient Isacc Larios [facility] sore heel [id number] 06/25/2015 17:28:00 2014 23:59:00 DIS Outpatient Abhinav Dueñas [facility] IC LT ELBOW SWOLLEN AND HOT [id number] 12/05/2014 09:01:00 2014 23:59:00 DIS Outpatient Isacc Larios [facility] med check/ cholesterol [id number] 02/08/2017 10:08:00 Document Registration [id number] 05/03/2016 13:05:00 ACT Outpatient Brett Gilmore [facility] [place] POST -OP [id number] 03/14/2015 09:34:00 Document Registration
--- NOTE | 2017-02-08 14:56 | NUR ---
RETURNED FROM X[facility]
--- NOTE | 2017-02-08 15:00 | NUR ---
STATUS STILL FEELS SOA. NO PAIN. SITTING UP IN CHAIR. WAITING FOR CLEAN ROOM ON THE UNIT.
--- NOTE | 2017-02-08 15:07 | DI ---
INDICATION: ITS.REASON: dyspnea PROCEDURE: CHEST 2-VIEWS UPRIGHT (PA \T\ LAT) Encounter: Initial COMPARISON: Portable chest radiograph from earlier today FINDINGS: The lungs are grossly clear. Lateral view is essentially nondiagnostic due to motion artifact. No pleural effusion or pneumothorax identified. Heart size and mediastinal contours are stable. Pulmonary vascularity is grossly normal. Impression: No focal pneumonia or overt congestive failure. .
--- NOTE | 2017-02-08 15:31 | NUR ---
REPORT TO JOSELINE KEENAN
--- NOTE | 2017-02-08 15:55 | NUR ---
ADMIT PT admitted to room 144 at this time. Pt assist x 2 to bed from wheelchair. Pt uses cane at home, but Princess is taking that home and suggested we use the hospital walker when up and ambulating. Pt is on O2 @ 2L per NC and saturation is 90-91%. Pt has some slurring and delayed talking with this RN upon initial assessment. Will continue to monitor. Call light in reach. Bed locked and low. Bed alarm on.
--- NOTE | 2017-02-08 15:55 | NUR ---
DEPART ED/ADMIT PT IS TAKEN PER WHEELCHAIR WITH 2L OF OXYGEN NC TO ROOM 144. PT'S WITH PT AND CARRIES HIS PERSONAL BELONGINGS. PT RELEASED TO NURSING STAFF WITHOUT DIFFICULITES.
[2017-02-08 16:01] VITALS: BP 135/71; PULSE 62; RESP 30; TEMP 97.6; O2SAT 91
[2017-02-08 16:05] VITALS: PULSE 62; RESP 30
[2017-02-08 16:07] VITALS: Ht 175.3 cm; Wt 117.2 kg
[2017-02-08] MEDS ORDERED: ALBUTEROL INH.SOLN. 2.5mg/3ml (0.083%) Neb. AEROSOL PRN (16:15)
[2017-02-08 16:53] VITALS: PULSE 62; RESP 16; O2SAT 91
--- NOTE | 2017-02-08 16:56 | HPPDOC ---
BREANNTSORMY D COVERSTITCH BINDER 02/08/17 1613: HPI - Adult Date DATE: 02/08/17 TIME: 16:10 General Chief Complaint: SOA History of Present Illness Reid Xie is a 71 y/o male who's been seeing Dr. Larios in outpatient setting for LLE cellulitis. He completed a 10-day course of Cipro BID on about . Lasix was also increased at that time to 40 mg in the morning and 20 mg at noon. His leg improved somewhat, but is still slightly red, swollen, and just recently became warmer to the touch. A venous doppler 01/25/17 ago was negative for DVT. He's also been following with MAY Jaeger, for peripheral edema and shortness of breath and hyponatremia. Na on 02/01/17 was 128 and he was started on salt tabs. Labs repeated on 02/08, and Na dropped to 117. He was sent to the ED for further eval. There, he was slightly hyperkalemic with K of 5.1. He was hypoxic with RA sat of 86%. BNP was 451. WBC was normal. CXR was neg. for pneumonia or failure. He was admitted to inpatient status for further eval and treatment of severe and symptomatic hyponatremia and hypoxic resp failure. LOS is expected to exceed 2 overnights. Patient and ROS: Increased dizziness for 2 days. Increased drowsiness, no confusion. Poor coordination, but his thinks this is because he dozes off so easily. No falls. Shortness of breath off and on for a couple of weeks, but has been worse for the last 2-3 days. Worse with activity, but SOA even at rest. + PND. Productive cough of clear phlegm x2-3 days. Chest pain with cough. No palpitations. Chronic low back pain with chronic numbness to left leg. No unilateral weakness. No vision changes. No dysphagia. No congestion, fever, sore throat. Good PO intake. No abd pain, n/v/d/c. No urinary changes. Past Medical History Past Medical History Spinal cord dysfunction secondary to osteoarthritis Central spinal stenosis Coronary artery disease Hypertension Hyperlipidemia History of overactive bladder. History of hydrocele History of diverticulosis Surgical History Patient's Surgical History: 10/04/16- L5 laminectomy, multiple microdiscectomy, L5-S1 fusion Coronary artery stents-07/2014 ([facility]) - drug eluting stents Adenoidectomy Knee replacement. inguinal hernia repair Angiographically of femoral and other lower extremity arteries- 07/2014 Inguinal hernia repair Colonsocopy Current Medications Home Meds Reported Medications Sodium Chloride (Sodium Chloride) 1 G Tablet, 1 GM PO QID 02/08/17 Hydrocodone/Apap ([place] 10-325 Tablet) 10-325 Tablet, 1 TAB PO Q4HR Y for PAIN 02/08/17 Furosemide (Furosemide) 20 Mg Tablet, 20 MG PO NOON 02/08/17 Lisinopril (Lisinopril) 2.5 Mg Tablet, 2.5 MG PO DAILY 02/08/17 Metoprolol Tartrate (Metoprolol Tartrate) 25 Mg Tablet, 12.5 MG PO BID 02/08/17 Cinnamon Bark (Cinnamon) 500 Mg Capsule, 500 MG PO DAILY 02/08/17 Furosemide (Furosemide) 20 Mg Tablet, 40 MG PO QAM 02/08/17 Multivitamin (Multivitamins) 1 Each Tablet, 1 TAB PO DAILY 02/08/17 Cholecalciferol (Vitamin D3) (Vitamin D) 1,000 Unit Capsule, 1000 UNIT PO HS 02/08/17 Clopidogrel Bisulfate (Clopidogrel) 75 Mg Tablet, 75 MG PO DAILY 02/08/17 Aspirin *EC* (Low Dose Aspirin EC) 81 Mg Tablet.dr, 81 MG PO DAILY 10/07/16 Atorvastatin Calcium (Lipitor) 40 Mg Tablet, 40 MG PO HS 04/28/16 Allergies: Coded Allergies: amoxicillin (Verified Allergy, Unknown, rash, 02/08/17) morphine (Verified Adverse Reaction, Unknown, LETHARGY, 02/08/17) Family History Family History: osteoarthritis, cancer - colon cancer in brother, heart attack (brother) Mother had breathing problems Father was fairly healthy Social History Smoking Status: Former smoker (quit at age 30) Does patient use chewing tobac: No # of Packs/Tins per Day: 1 # of Years: 10 Substance Use Type: does not use Alcohol Intake: none Marital Status: (Princess) Service: Yes Current Occupational Status: retired 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 Larios CV - Dr. Amiranpaloma Anthony Review of Systems Constitutional: REPORTS: dizziness, fatigue, weakness, DENIES: appetite decrease, chills, fever Eyes Vision: REPORTS: vision changes (gradual decrease - no acute changes; wears glasses) ENMT Sinuses: NOT FOUND: congestion, rhinorrhea Mouth/Throat: DENIES: change in swallowing, sore throat Cardiovascular chest pain (with cough) Vascular: see HPI Pulmonary Respiratory: cough, dyspnea, sputum (clear) GI Upper Abdomen: DENIES: nausea, pain, vomiting Lower Abdomen: DENIES: constipation, diarrhea General: DENIES: dysuria, frequency Musculoskeletal General: edema Integumentary Skin: infections (cellulitis LLE), rash (LLE - red) Neurological General: numbness (LLE - chronic), weakness, DENIES: ataxia, headache, memory disturbances, seizures, syncope Psychiatric Psychiatric: DENIES: depression Hematologic/Lymphatic DENIES: anemia Allergic/Immunological DENIES: frequent infections All Other Systems All Other Systems: Reviewed (remainder of 10-point ROS Neg.) Physical Exam General General Nourishment: well nourished, well developed, obese General Body Habitus: well groomed Vital Signs Vital Signs Date Time Temp Pulse Resp B/P Pulse Ox O2 Delivery O2 Flow Rate FiO2 02/08/17 15:05 98.1 60 30 130/109 93 Nasal Cannula 2.00 Height (Feet): 5 Height (Inches): 9.00 Eyes Brief: FOUND: PERRL, NOT FOUND: scleral icterus ENMT Brief: FOUND: mucosa moist, NOT FOUND: pharnyx erythema Neck Brief: NOT FOUND: adenopathy, nuchal rigidity Respiratory Auscultation: FOUND: decreased, NOT FOUND: rales, rhonchi, wheezes Cardiovascular Auscultation: FOUND: S1, S2, regular Peripheral Pulses: 2+: Dorasalis Pedis (L), Dorsalis Pedis (R), Posterior Tibial (L), Posterior Tibial (R), Radial (L), Radial (R) Edema: 0: Anasarca, Arm (L), Arm (R), Face, 2+: Leg (L), Leg (R) Abdomen Inspection: NOT FOUND: distention Palpation: FOUND: soft, NOT FOUND: McBurney's point tender, Allen's sign, involuntary guarding, rebound, tender, voluntary guarding Auscultation: FOUND: normo active Musculoskeletal (brief) Musculoskeletal Brief: FOUND: other (left lower ext/calf is tight, warm, and mildly erythemic; 2-3 small superficial abrasions) Integumentary (brief) Integumentary Brief: FOUND: dry, pink, warm Integumentary General: FOUND: dry, warm Color: FOUND: pink Neurologic (brief) Neurological Brief: FOUND: cranial 2-12 intact (grossly) Neurologic GCS Eye Opening: (4)Spontaneous GCS Verbal: (5)Oriented GCS Motor: (6)Obeys Commands RN Documented GCS Total: 15 Psychiatric (brief) FOUND: alert, attentive, normal affect, oriented Laboratory Laboratory Tests Test 02/08/17 12:45 White Blood Count 9.9T/MM3 Red Blood Count 5.28M/MM3 Hemoglobin 14.5GM/DL Hematocrit 40.6% Mean Corpuscular Volume 76.9UM3 Mean Corpuscular Hemoglobin 27.5UUG Mean Corpuscular Hemoglobin Concent 35.7GM/DL RDW Standard Deviation 39.9FL Platelet Count 160T/MM3 Mean Platelet Volume 9.9UM3 Immature Granulocyte % (Auto) 0.3% Neutrophils (%) (Auto) 75.2% Lymphocytes (%) (Auto) 13.7% Monocytes (%) (Auto) 10.0% Eosinophils (%) (Auto) 0.7% Basophils (%) (Auto) 0.1% Absolute Immature Granulocyte (auto 0.03T/MM3 Absolute Neutrophils (auto) 7.5T/MM3 Absolute Lymphocytes (auto) 1.4T/MM3 Absolute Monocytes (auto) 1.0T/MM3 Absolute Eosinophils (auto) 0.1T/MM3 Absolute Basophils (auto) 0.0T/MM3 Turbidity < 20 Sodium Level 117MEQ/L Potassium Level 5.1MEQ/L Chloride Level 78MEQ/L Carbon Dioxide Level 31MEQ/L Anion Gap 8MEQ/L Blood Urea Nitrogen 11.0MG/DL Creatinine 0.5MG/DL Glomerular Filtration Rate Calc 164 BUN/Creatinine Ratio 22RATIO Glucose Level 109MG/DL Calculated Osmolality 227MOSM/KG Calcium Level 8.6MG/DL Icterus Index < 2 Troponin I < 0.012ng/ml [id number]-M-Type Natriuretic Peptide 451PG/ML Chemistry Specimen Hemolysis < 15 Assessment & Plan Problems: (1) Hyponatremia Status: Resolved (2) Hypoxia Status: Acute Assessment & Plan: RA sats 86% on ED arrival (3) CAD (coronary artery disease) Status: Chronic (4) Hypertension Status: Chronic (5) OA (osteoarthritis) Status: Chronic (6) Dyslipidemia Status: Chronic (7) Normocytic anemia Status: Chronic (8) Obesity (BMI 30-39.9) Status: Chronic Plan/Intensity of Service Admitted, inpatient status to the hospitalist service. PCP: Dr. Larios. CODE STATUS: Full code 1. Severe symptomatic hyponatremia. * Patient's symptoms include dizziness, extreme fatigue, and coordination problems. * Sodium level was 117 on admission. Will trend every 6 hours. * Causes still unknown, though the increase in Lasix dose could be a contributing factor. * Hold Salt tabs. * Check urine sodium and urine creatinine levels. * Would consider starting normal saline, but given his hypoxia. I am a bit hesitant at this time. * Check TSH. * Consider tests for adrenal insufficiency, although no history and no recent steroids. 2. Acute hypoxic respiratory failure with room air saturation of 86%. * Start DuoNeb treatments every 6 hours. * Well obtain echocardiogram given his history of coronary artery disease. * Repeat venous Doppler of left lower extremity. One done on 01/25/17 was negative. 3. Recent outpatient treatment for left lower extremity cellulitis and edema. * Completed course of Cipro 500 mg twice a day 10 days over the weekend. Redness is improved, but still swollen and warm and slightly red. * Lasix dose was increased to 40 mg in the morning and 20 mg at noon. * Consider alternate diuretic 4. Chest pain associated with cough. * Trend troponin, echo as above. * Monitor on telemetry. * History of coronary artery disease - continue with dual antiplatelet therapy, statin, beta diego and VERN inhibitor. DVT Prophylaxis: SCD'S Code Status Full Code Hospital Course Summary Disclaimer The hospital course summary below is not to be considered part of the above Progress Note. Hospital Course Summary 02/08/17 1. Severe symptomatic hyponatremia. * Patient's symptoms include dizziness, extreme fatigue, and coordination problems. * Sodium level was 117 on admission. Will trend every 6 hours. * Causes still unknown, though the increase in Lasix dose could be a contributing factor. * Hold Salt tabs. * Check urine sodium and urine creatinine levels. * Would consider starting normal saline, but given his hypoxia. I am a bit hesitant at this time. * Check TSH. * Consider tests for adrenal insufficiency, although no history and no recent steroids. 2. Acute hypoxic respiratory failure with room air saturation of 86%. * Start DuoNeb treatments every 6 hours. * Well obtain echocardiogram given his history of coronary artery disease. * Repeat venous Doppler of left lower extremity. One done on 01/25/17 was negative. 3. Recent outpatient treatment for left lower extremity cellulitis and edema. * Completed course of Cipro 500 mg twice a day 10 days over the weekend. Redness is improved, but still swollen and warm and slightly red. * Lasix dose was increased to 40 mg in the morning and 20 mg at noon. * Consider alternate diuretic 4. Chest pain associated with cough. * Trend troponin, echo as above. * Monitor on telemetry. * History of coronary artery disease - continue with dual antiplatelet therapy, statin, beta diego and VERN inhibitor. EMILY RIOS DO 02/09/17 0032: Past Medical History Current Medications Home Meds Reported Medications Sodium Chloride (Sodium Chloride) 1 G Tablet, 1 GM PO QID 02/08/17 Hydrocodone/Apap ([place] 10-325 Tablet) 10-325 Tablet, 1 TAB PO Q4HR Y for PAIN 02/08/17 Furosemide (Furosemide) 20 Mg Tablet, 20 MG PO NOON 02/08/17 Lisinopril (Lisinopril) 2.5 Mg Tablet, 2.5 MG PO DAILY 02/08/17 Metoprolol Tartrate (Metoprolol Tartrate) 25 Mg Tablet, 12.5 MG PO BID 02/08/17 Cinnamon Bark (Cinnamon) 500 Mg Capsule, 500 MG PO DAILY 02/08/17 Furosemide (Furosemide) 20 Mg Tablet, 40 MG PO QAM 02/08/17 Multivitamin (Multivitamins) 1 Each Tablet, 1 TAB PO DAILY 02/08/17 Cholecalciferol (Vitamin D3) (Vitamin D) 1,000 Unit Capsule, 1000 UNIT PO HS 02/08/17 Clopidogrel Bisulfate (Clopidogrel) 75 Mg Tablet, 75 MG PO DAILY 02/08/17 Aspirin *EC* (Low Dose Aspirin EC) 81 Mg Tablet.dr, 81 MG PO DAILY 10/07/16 Atorvastatin Calcium (Lipitor) 40 Mg Tablet, 40 MG PO HS 04/28/16 Allergies: Coded Allergies: amoxicillin (Verified Allergy, Unknown, rash, 02/08/17) morphine (Verified Adverse Reaction, Unknown, LETHARGY, 02/08/17) Assessment & Plan Plan/Intensity of Service 02/08/2017 Dr. Rios note I saw Mr. Mathews also in his room and visited with him and his extensively. He tolerated his doctor had been watching his sodium and that approximately a week ago it was 128 now today it was done 117 of breath he also complained of dizziness is much increased the last couple of days along with weakness. From the sodium being so low. His Dr. Javier infero- left lower extremity cellulitis and that area remained somewhat red even after the Cipro treatment was completed his past medical history includes the following: Coronary artery disease, spinal stenosis, hypertension, hyperlipidemia, diverticulosis, and overactive bladder, and an inguinal hernia. His surgical history is positive for back surgery, heart stents in 2013, adenoid surgery, full knee replacement, and angiography of the arteries of his lower extremity I'm not sure whether that is right or left. Family history he is and retired. He smoked age 30 then quit isolated start to lose 15 or 16 slides about a 15 year history. 3 noncontributory review of systems he's had dizziness lately he's been tired and weak. He's had a cough which bothered him and cellulitis on the left lower extremity. All the other areas of the review of systems are negative physical exam shows a large male who weighs about 250 pounds and is 5 foot 9. He has 117 sodium and chloride and on room air he only sats 86%. Heart has a regular rate and rhythm without murmur; lungs are clear to auscultation without wheezing; head is normocephalic tympanic membranes are intact the oropharynx is clear; rectal exam is deferred and the genitalia exam is deferred extremities show no clubbing or cyanosis or leuk trase edema integument is warm and dry although the right lower extremity does show some redness for the cellulitis. Diagnoses are as follows: Severe hypernatremia, unexplained 2. Hypoxemia with a room air saturation of 86%, unexplained 3. Hypertension, chronic 4. Hyperlipidemia, chronic 5. Obesity, long -standing he is not anemic at all with an H&H of 14.5 and 40.6. Our current plan is to hydrate him slowly and to rapidly attempted decipher the cause of his hypoxemia and hyper [place] hyponatremia. We did walk in the room and he dropped from 93-85% O2 saturation and a very short period of time, perhaps [address] with contrast to rule out a PE and in fact we did rule out a PE, the radiologist could find none there. I have read the H&P of Ms. Crain and fully agree with her findings, assessments and plan. STORMY CRAIN APRN Feb 08, 2017 16:13 EMILY RIOS DO Feb 09, 2017 00:32
[2017-02-08] MEDS ORDERED: SODIUM CHLORIDE 1 G TABLET PO SCH (17:00)
[2017-02-08] MEDS: ALBUTEROL/IPRATROPIUM INHAL. 2.5mg-0.5mg/3ml Neb. AEROSOL SCH ×2 (17:02→22:57)
[2017-02-08 17:46] VITALS: O2SAT 94
[2017-02-08] MEDS ORDERED: NORMAL SALINE 100 ML ONE (18:27)
[2017-02-08] MEDS ORDERED: IOHEXOL 350 MG/ML 75ml INJECTION ONE (18:27)
[2017-02-08] MEDS ORDERED: SALINE FLUSH 10ml SYRINGE ONE ×2 (18:27→18:48)
--- NOTE | 2017-02-08 18:30 | NUR ---
DEPART PT LEFT TO CT SCAN AT THIS TIME.
[2017-02-08 20:00] VITALS: PULSE 75
--- NOTE | 2017-02-08 20:57 | NUR ---
STROKE THIS NURSE ENTER PT'S ROOM AT 2014. PT WAS ASLEEP WITH SPOUSE AT BED SIDE. ATTEMPT TO WAKE PT UP FOR ASSESSMENT. PT DID NOT RESPONSE WHEN HIS NAME WAS CALLED. ATTEMPT TO AWAKEN PT BY MOVING HIS ARM AND TOUCHING HIS SHOULDER. PT DID NOT OPEN HIS EYES OR MOVE. RUBBED PT'S FOOT ON THE RIGHT AND THEN THE LEFT. HE DID NOT HAVE A RESPONSE. RUBBED PT'S RIGHT FOOT AND HE OPEN HIS EYES. HE WAS STARING AT THE WALL AND DIDN'T RESPOND. ASKED PT IF HE KNOW WHERE HE WAS OR IF HE KNOW HIS SPOUSE. PT DID NOT RESPOND OR MOVE HIS EYES TOWARD HIS SPOUSE. RUBBED PT'S LEFT FOOT AND THEN THE RIGHT. PT DID RESPOND VERY SLOWLY BY LOOKING AT THIS NURSE. ASKED PT TO SQUEEZE THE NURSES HANDS. THIS WAS DONE OFTEN BETWEEN RUBBING HIS FEET. BY 2024 PT WAS STARTING TO ANSWER YES OR NO QUESTION. CHARGE NURSE WAS ASKED TO COME INTO THE PT'S ROOM. SHE COMPLETED A ASSESSMENT. BY 2029 STROKE TEAM WAS NOTIFIED. Addendum: 02/09/17 at 0407 by ELDER ABARCA RN 2020- STROKE ALERT CALL MADE TO 1920. Ashleigh MASON RN, [facility], LAB STAFF AND CHARGE NURSE SHELDON WERE IN PT'S ROOM WITH IN A SHORT TIME. 2047-TELE WAS ASKED TO CALL DIRK TO 2750. TWO MESSAGES WERE SENT BY THIS NURSE. Ashleigh MASON PROVIDED LIVIER PHYSICIAN'S PHONE TO GIVE DR PINK. DR RAMOS WAS STILL ON THE UNIT ASKED ABOUT THE PT AND ASKED TO CONTINUE WITH DR PINK FOR PT'S CARES. PT IS RESPONDING MORE WITHIN NORMAL LIMITS. DR PINK CALLED X 2 TO GIVE ORDERS AND FOR UPDATE ON PT CONDITION. PT WAS STARTING TO ASK WHAT HAD HAPPEN AND WHAT WAS GOING ON BY 2136. HE STATES HE DID NOT REMEMBER WHAT HAD HAPPEN.
--- NOTE | 2017-02-08 21:00 | NUR ---
CONTINUE STROKE ALERT BLOOD SUGAR @ . PT KNOW HIS NAME BY THIS TIME. PUPILS WERE EQUAL. 2048- PT RETURNED FROM CT AT THIS TIME HE WASN'T HAVING SYMPTOMS BEFORE. MORE ALERT AT THIS TIME STILL HAVING DIFFICULT WITH FALLOWING COMMANDS. SPOUSE REMAINS AT PT'S BED SIDE.
[2017-02-08 21:05] LABS: INR 1.24 (0.76-1.04); PROTHROMBIN TIME 13.5 SEC (9.31-12.49); PTT 40.3 SEC (24-36)
[2017-02-08 21:08] LABS: ALBUMIN 4.1 G/DL (3.5-5.0); ALBUMIN/GLOBULIN RATIO 1.4 RATIO (1.1-2.2); ALKALINE PHOSPHATASE 80 U/L (38-126); ALT (SGPT) 33 U/L (21-72); ANION GAP 5 MEQ/L (5-15); AST (SGOT) 22 U/L (17-59); BUN/CREATININE RATIO 18 RATIO (6-26); CALCIUM 8.4 MG/DL (8.4-10.2); CHLORIDE 75 MEQ/L (98-107); CO2 - CARBON DIOXIDE 37 MEQ/L (22-30); CREATININE 0.5 MG/DL (0.8-1.5); GLOMERULAR FILTRATION RATE 164; GLUCOSE 122 MG/DL (75-110); POTASSIUM 5.2 MEQ/L (3.6-5); TOTAL PROTEIN 7.1 G/DL (6.3-8.2)
[2017-02-08 21:17] LABS: BASOPHILS % (AUTO) 0.1 % (0-2); EOSINOPHILS # (AUTO) 0.1 T/MM3 (0-0.5); HCT - HEMATOCRIT 42.5 % (41-53); HGB - HEMOGLOBIN 14.9 GM/DL (13.5-17.5); IMMATURE GRANULOCYTE # (AUTO) 0.02 T/MM3 (0.00-0.03); IMMATURE GRANULOCYTE % (AUTO) 0.2 % (0.0-0.5); LYMPHOCYTES # (AUTO) 1.4 T/MM3 (1-4.8); LYMPHOCYTES % (AUTO) 15.8 % (23-45); MEAN CORPUSCULAR HGB 27.2 UUG (26-34); MEAN CORPUSCULAR HGB CONC(MCHC 35.1 GM/DL (31-37); MEAN CORPUSCULAR VOLUME 77.7 UM3 (80-100); MEAN PLATELET VOLUME 9.4 UM3 (9.4-12.4); MONOCYTES # (AUTO) 1.1 T/MM3 (0-0.8); MONOCYTES % (AUTO) 11.5 % (0-9.0); NEUTROPHILS #(AUTO)-ABSOLUTE 6.5 T/MM3 (1.8-7.7); NEUTROPHILS % (AUTO) 71.4 % (33-66); RED BLOOD COUNT 5.47 M/MM3 (4.50-5.90); WBC - WHITE BLOOD COUNT 9.1 T/MM3 (4.5-11.0)
[2017-02-08 21:22] LABS: SODIUM 117 MEQ/L (134-144)
[2017-02-08] MEDS: NORMAL SALINE 1,000 ML IV SCH (22:00)
[2017-02-08] MEDS ORDERED: ATORVASTATIN 40 MG TABLET PO SCH (22:00)
[2017-02-08 22:22] LABS: CREATININE, URINE RANDOM 61.7 MG/DL
[2017-02-09] VITALS (25 sets, daily range): BP systolic 84–153; BP diastolic 47–73; PULSE 62–80; RESP 12–35; TEMP 96.6–98.6; O2SAT 91–100
[2017-02-09 05:26] LABS: HCT - HEMATOCRIT 42.8 % (41-53); HGB - HEMOGLOBIN 14.7 GM/DL (13.5-17.5); MEAN CORPUSCULAR HGB 27.1 UUG (26-34); MEAN CORPUSCULAR HGB CONC(MCHC 34.3 GM/DL (31-37); MEAN PLATELET VOLUME 10.1 UM3 (9.4-12.4); RED BLOOD COUNT 5.42 M/MM3 (4.50-5.90); WBC - WHITE BLOOD COUNT 11.5 T/MM3 (4.5-11.0)
[2017-02-09 05:43] LABS: ANION GAP 4 MEQ/L (5-15); BUN/CREATININE RATIO 20 RATIO (6-26); CALCIUM 8.4 MG/DL (8.4-10.2); CHLORIDE 76 MEQ/L (98-107); CO2 - CARBON DIOXIDE 37 MEQ/L (22-30); CREATININE 0.5 MG/DL (0.8-1.5); GLOMERULAR FILTRATION RATE 164; GLUCOSE 121 MG/DL (75-110); POTASSIUM 5.8 MEQ/L (3.6-5)
[2017-02-09 05:50] LABS: SODIUM 117 MEQ/L (134-144)
[2017-02-09] MEDS: ALBUTEROL/IPRATROPIUM INHAL. 2.5mg-0.5mg/3ml Neb. AEROSOL SCH (06:24)
[2017-02-09 06:42] LABS: BAND NEUTROPHILS # 0.2 T/MM3; EOSINOPHILS # (MANUAL) 0.1 T/MM3 (0-0.5); LYMPHOCYTES # (MANUAL) 1.3 T/MM3 (1-4.8); MONOCYTES # (MANUAL) 1.4 T/MM3 (0-0.8); NEUTROPHILS #(MANUAL)-ABSOLUTE 8.4 T/MM3 (1.8-7.7); NUCLEATED RED BLOOD CELLS 1; REACTIVE LYMPHOCYTES # 0.1 T/MM3 (0-0); TOTAL CELLS COUNTED 100 %
--- NOTE | 2017-02-09 08:07 | DI ---
Indication: ITS.REASON: Left extremity weakness, possible stroke PROCEDURE: CT HEAD W/O CONTRAST: Encounter: Initial Comparison: None Technique: Axial CT images through the head were performed without contrast. Iterative Reconstruction dose reducing technique was utilized. FINDINGS: The ventricles are of normal size, shape, and contour for the patient's age. There are scattered areas of low attenuation in the white matter which most likely represent changes from chronic microvascular ischemia. The brainstem, cerebellum, and cerebral hemispheres otherwise have a normal morphology and CT attenuation. There is no evidence of midline displacement. No hemorrhage, signs of acute territorial stroke, mass effect, mass lesions, or edema is evident. The visualized portions of the skull base, midface, and calvarium demonstrate no abnormality. The paranasal sinuses are well aerated and free of significant disease. The tympanic and mastoid cavities appear normal. IMPRESSION: No acute intracranial abnormality or hemorrhage. There is a preliminary report by [facility]. .
--- NOTE | 2017-02-09 08:11 | DI ---
Indication: ITS.REASON: pt had very rapid desat of o2 with a small,slow walk; must r/o pu PROCEDURE: CTA PULMONARY EMBOLI: Encounter: Initial Comparison: None Technique: Axial CT pulmonary angiographic phase images were performed through the chest after the administration of intravenous contrast. Coronal and Sagittal MIP reconstructed images were created and reviewed. Automated Exposure Control and Iterative Reconstruction dose reducing techniques were utilized. Contrast: Omnipaque 350 72 mL Findings: Pulmonary arteries: Exam is diagnostic to the segmental pulmonary arterial level. No filling defects to confirm a pulmonary embolus. Other findings: Mild atelectasis or scarring in the right middle lobe. No lobar consolidative pneumonia, pleural effusion or pneumothorax. No pulmonary masses. The central airways are patent. No axillary or mediastinal adenopathy. Heart size is enlarged. Mediastinal contours are normal. No pericardial effusion. The upper abdomen shows no acute findings. Impression: No pulmonary embolus. No pneumonia or CHF. There is a preliminary report by [facility]. .
--- NOTE | 2017-02-09 08:32 | DI ---
Indication: ITS.REASON: left leg warmth, swelling PROCEDURE: US VENOUS DUPLEX, LOWER EXT LT: Encounter: Initial Comparison: January 25, 2017 Technique: Color Doppler duplex and grayscale sonographic imaging of the left lower extremity was performed. Findings: There is no evidence for acute deep venous thrombosis in the left thigh. Specifically, serial graded compression was performed from the inguinal ligament to the popliteal bifurcation, on the left thigh, demonstrating appropriate compressibility of the deep venous system. In addition, color and pulsed Doppler demonstrate appropriate spontaneous flow, variation with respiration, and augmentation with calf compression. At the ankle, normal flow is identified in the posterior tibial veins; these vessels are also normal in caliber. Impression: No evidence of acute DVT in the left lower limb. .
[2017-02-09] MEDS ORDERED: ASPIRIN *EC* 81mg TABLET PO SCH (09:00)
[2017-02-09] MEDS ORDERED: FUROSEMIDE 40 MG TABLET PO SCH (09:00)
[2017-02-09] MEDS ORDERED: LISINOPRIL 2.5 MG TABLET PO SCH (09:00)
[2017-02-09] MEDS ORDERED: CLOPIDOGREL 75 MG TABLET PO SCH (09:00)
--- NOTE | 2017-02-09 09:00 | NUR ---
Clyde/ Notified This RN came into patient's room at this time after called from vehicle monitor technician about low oxygen. Patient's oxygen saturation 82% on 4L at this time. Oxygen increased to 10L non-rebreather. Patient unresponsive to verbal stimuli. Patient was sternal rubbed, feet tickled and opened eyes. Patient's oxygen saturation increased to 94% on 10L. Patient able to tell nurse that he is in [facility] and the name of his . Dr. Rios notified of status. Orders for serum cortisol, ABG, and solu-medrol received and implemented.
--- NOTE | 2017-02-09 10:00 | NUR ---
Status Patient placed on bipap. Maintaining saturations in 90's. Patient continues to be unresponsive except opens eyes to pain. Dr. Rios notified that patient's sodium levels remain at 117 and potassium 5.8. No further orders at this time.
--- NOTE | 2017-02-09 11:00 | NUR ---
Status/DrChace Notified Dr. Rios notified that patient's ABG improving slightly. Patient remains unresponsive except opens eyes to pain. This RN asked if there will be further orders for patient's sodium and potassium levels. states patient will most likely be transferred to CCU or outside facility later today. No further orders at this time.
[2017-02-09] MEDS: NORMAL SALINE 1,000 ML IV SCH (11:52)
[2017-02-09] MEDS ORDERED: FUROSEMIDE 20 MG TABLET PO SCH (12:00)
--- NOTE | 2017-02-09 13:05 | NUR ---
Transfer Patient transferred to CCU at this time via cart to be intubated. Report called to SHLOMO Marin.
--- NOTE | 2017-02-09 13:13 | NUR ---
RECEIVED TO CCU ROOM 2 PER BED FROM [facility]. MINIMAL RESPONSIVENESS TO VERBAL STIMULI. OPENS EYES ON COMMAND. ANESTHESIA NOTIFIED OF NEED FOR INTUBATION. POWER TAVERAS AND ALAN CADET ARRIVE PROMPTLY. RT ADMINISTERING O2 PER AMBU BAG IN SR, BP STABLE AT THIS TIME.
--- NOTE | 2017-02-09 13:30 | NUR ---
INTUBATION BY POWER MURRAY FUR BLOWER OPERATOR WITH MEDICATIONS ADMIN BY ALAN CADET FUR BLOWER OPERATOR. 7.5 ET TUBE PLACED WITH 21 CM AT TEETH. MATHUR CATH 16 FR PLACED BY DIRECTOR TALENT MANAGEMENT WITHOUT DIFFICULTY.
[2017-02-09] MEDS: PROPOFOL 1000mg 100 ML IV SCH ×2 (13:40→14:02)
--- NOTE | 2017-02-09 13:45 | NUR ---
SEDATION WAKENS FROM PROPOFOL BOLUS. ADDITIONAL 10 CC BOLUS SLOWLY GIVEN.
--- NOTE | 2017-02-09 13:54 | NUR ---
STATUS BP 84 SYST. ESTES NOTIFIED WITH 250 CC FLUID BOLUS STARTED ORDERED. COPIOUS AMTS CLEAR ORAL SECRETIONS SUCTIONED, LG AMTS SPUTUM SUCTIONED PER ET TUBE. AT BEDSIDE, AWARE OF TRANSFER PLANS.
[2017-02-09] MEDS ORDERED: PROPRANOLOL 1 MG/ML IV ONE (14:00)
--- NOTE | 2017-02-09 14:09 | DSPDOC ---
General Date Date DATE: 02/09/17 TIME: 13:59 Attending Physician Emily Rios DO Admitting Physician Emily Rios DO Consulting Physician Admitting Diagnosis hyponatremia, hypoxia Discharge Diagnosis respiratory failure;[2] hyponatremia[3] hypertension,[4] intubation Laboratory Laboratory Tests Test 02/08/17 12:28 02/08/17 12:45 02/08/17 19:18 02/08/17 20:24 Thyroid Stimulating Hormone (TSH) 4.35MIU/L (0.47-4.68) White Blood Count 9.9T/MM3 (4.5-11.0) Red Blood Count 5.28M/MM3 (4.50-5.90) Hemoglobin 14.5GM/DL (13.5-17.5) Hematocrit 40.6% (41-53) Mean Corpuscular Volume 76.9UM3 (80-100) Mean Corpuscular Hemoglobin 27.5UUG (26-34) Mean Corpuscular Hemoglobin Concent 35.7GM/DL (31-37) RDW Standard Deviation 39.9FL (36.9-50.2) Platelet Count 160T/MM3 (130-400) Mean Platelet Volume 9.9UM3 (9.4-12.4) Immature Granulocyte % (Auto) 0.3% (0.0-0.5) Neutrophils (%) (Auto) 75.2% (33-66) Lymphocytes (%) (Auto) 13.7% (23-45) Monocytes (%) (Auto) 10.0% (0-9.0) Eosinophils (%) (Auto) 0.7% (0-4) Basophils (%) (Auto) 0.1% (0-2) Absolute Immature Granulocyte (auto 0.03T/MM3 (0.00-0.03) Absolute Neutrophils (auto) 7.5T/MM3 (1.8-7.7) Absolute Lymphocytes (auto) 1.4T/MM3 (1-4.8) Absolute Monocytes (auto) 1.0T/MM3 (0-0.8) Absolute Eosinophils (auto) 0.1T/MM3 (0-0.5) Absolute Basophils (auto) 0.0T/MM3 (0-0.2) Turbidity < 20 (0-20) Sodium Level 117MEQ/L (134-144) Potassium Level 5.1MEQ/L (3.6-5) Chloride Level 78MEQ/L (98-107) Carbon Dioxide Level 31MEQ/L (22-30) Anion Gap 8MEQ/L (5-15) Blood Urea Nitrogen 11.0MG/DL (9-20) Creatinine 0.5MG/DL (0.8-1.5) Glomerular Filtration Rate Calc 164 BUN/Creatinine Ratio 22RATIO (6-26) Glucose Level 109MG/DL (75-110) Calculated Osmolality 227MOSM/KG (261-280) Calcium Level 8.6MG/DL (8.4-10.2) Icterus Index < 2 (0-7) Troponin I < 0.012ng/ml (0-0.12) ET-Yel-Q-Type Natriuretic Peptide 451PG/ML (0-175) Chemistry Specimen Hemolysis < 15 (0-25) Urine Random Creatinine 61.7MG/DL Urine Random Sodium 55MEQ/L (30-90) Glucometer 112mg/dL (75-110) Test 02/08/17 20:51 02/09/17 04:46 02/09/17 09:30 02/09/17 09:37 White Blood Count 9.1T/MM3 (4.5-11.0) 11.5T/MM3 (4.5-11.0) Red Blood Count 5.47M/MM3 (4.50-5.90) 5.42M/MM3 (4.50-5.90) Hemoglobin 14.9GM/DL (13.5-17.5) 14.7GM/DL (13.5-17.5) Hematocrit 42.5% (41-53) 42.8% (41-53) Mean Corpuscular Volume 77.7UM3 (80-100) 79.0UM3 (80-100) Mean Corpuscular Hemoglobin 27.2UUG (26-34) 27.1UUG (26-34) Mean Corpuscular Hemoglobin Concent 35.1GM/DL (31-37) 34.3GM/DL (31-37) RDW Standard Deviation 41.2FL (36.9-50.2) 42.4FL (36.9-50.2) Platelet Count 154T/MM3 (130-400) 180T/MM3 (130-400) Mean Platelet Volume 9.4UM3 (9.4-12.4) 10.1UM3 (9.4-12.4) Immature Granulocyte % (Auto) 0.2% (0.0-0.5) % (0.0-0.5) Neutrophils (%) (Auto) 71.4% (33-66) % (33-66) Lymphocytes (%) (Auto) 15.8% (23-45) % (23-45) Monocytes (%) (Auto) 11.5% (0-9.0) % (0-9.0) Eosinophils (%) (Auto) 1.0% (0-4) % (0-4) Basophils (%) (Auto) 0.1% (0-2) % (0-2) Absolute Immature Granulocyte (auto 0.02T/MM3 (0.00-0.03) T/MM3 (0.00-0.03) Absolute Neutrophils (auto) 6.5T/MM3 (1.8-7.7) T/MM3 (1.8-7.7) Absolute Lymphocytes (auto) 1.4T/MM3 (1-4.8) T/MM3 (1-4.8) Absolute Monocytes (auto) 1.1T/MM3 (0-0.8) T/MM3 (0-0.8) Absolute Eosinophils (auto) 0.1T/MM3 (0-0.5) T/MM3 (0-0.5) Absolute Basophils (auto) 0.0T/MM3 (0-0.2) T/MM3 (0-0.2) Prothromb Time International Ratio 1.24 (0.76-1.04) Activated Partial Thromboplast Time 40.3SEC (24-36) Turbidity < 20 (0-20) < 20 (0-20) Sodium Level 117MEQ/L (134-144) 117MEQ/L (134-144) 117MEQ/L (134-144) Potassium Level 5.2MEQ/L (3.6-5) 5.8MEQ/L (3.6-5) Chloride Level 75MEQ/L (98-107) 76MEQ/L (98-107) Carbon Dioxide Level 37MEQ/L (22-30) 37MEQ/L (22-30) Anion Gap 5MEQ/L (5-15) 4MEQ/L (5-15) Blood Urea Nitrogen 9.0MG/DL (9-20) 10.0MG/DL (9-20) Creatinine 0.5MG/DL (0.8-1.5) 0.5MG/DL (0.8-1.5) Glomerular Filtration Rate Calc 164 164 BUN/Creatinine Ratio 18RATIO (6-26) 20RATIO (6-26) Glucose Level 122MG/DL (75-110) 121MG/DL (75-110) Calculated Osmolality 227MOSM/KG (261-280) 227MOSM/KG (261-280) Calcium Level 8.4MG/DL (8.4-10.2) 8.4MG/DL (8.4-10.2) Total Bilirubin 1.30MG/DL (0.20-1.30) Icterus Index < 2 (0-7) < 2 (0-7) Aspartate Amino Transf (AST/SGOT) 22U/L (17-59) Alanine Aminotransferase (ALT/SGPT) 33U/L (21-72) Alkaline Phosphatase 80U/L (38-126) Troponin I < 0.012ng/ml (0-0.12) < 0.012ng/ml (0-0.12) Total Protein 7.1G/DL (6.3-8.2) Albumin 4.1G/DL (3.5-5.0) Globulin 3.0G/DL (2.4-3.6) Albumin/Globulin Ratio 1.4RATIO (1.1-2.2) Chemistry Specimen Hemolysis < 15 (0-25) 16 (0-25) Neutrophils % (Manual) 73.0% (33-66) Band Neutrophils % 2.0% (0-6) Lymphocytes % (Manual) 11.0% (23-45) Reactive Lymphocytes % 1.0% (0-0) Monocytes % (Manual) 12.0% (0-9.0) Eosinophils % (Manual) 1.0% (0-4) Absolute Neutrophils (Manual) 8.4T/MM3 (1.8-7.7) Band Neutrophils # 0.2T/MM3 Lymphocytes # (Manual) 1.3T/MM3 (1-4.8) Reactive Lymphocytes # 0.1T/MM3 (0-0) Monocytes # (Manual) 1.4T/MM3 (0-0.8) Eosinophils # (Manual) 0.1T/MM3 (0-0.5) Nucleated Red Blood Cells 1 Red Cell Morphology Comment Normal Arterial Blood pH 7.130 (7.350-7.450) Arterial Blood Partial Pressure CO2 120MMHG (34-45) Arterial Blood pO2 at Patient Temp 115MMHG (80-100) Arterial Blood HCO3 40MEQ/L (22-26) Arterial Blood Total CO2 43.6MEQ/L (23-27) Arterial Blood Oxygen Saturation 97.0% (95.0-98.0) Arterial Blood Base Excess 6.8MMOL/L (-2.0-2.0) Oxygen Delivery Method (LAB) Nrb mask, % Blood Gas Oxygen Liter Flow Blood Gas Oxygen Percent Given 100 Blood Gas Vent Rate (0-30) Blood Gas Tidal Volume ML (0-1200) Test 02/09/17 10:20 02/09/17 12:04 02/09/17 13:49 Arterial Blood pH 7.180 (7.350-7.450) 7.114 (7.350-7.450) 7.200 (7.350-7.450) Arterial Blood Partial Pressure CO2 104MMHG (34-45) 115MMHG (34-45) 98MMHG (34-45) Arterial Blood pO2 at Patient Temp 90MMHG (80-100) 98MMHG (80-100) 61MMHG (80-100) Arterial Blood HCO3 39MEQ/L (22-26) 37MEQ/L (22-26) 38MEQ/L (22-26) Arterial Blood Total CO2 42.0MEQ/L (23-27) 40MEQ/L (23-27) 41.3MEQ/L (23-27) Arterial Blood Oxygen Saturation 95.0% (95.0-98.0) 94.0% (95.0-98.0) 85.0% (95.0-98.0) Arterial Blood Base Excess 6.9MMOL/L (-2.0-2.0) 2.0MMOL/L (-2.0-2.0) 7.0MMOL/L (-2.0-2.0) Oxygen Delivery Method (LAB) Bpap, % Bpap, % Vent-endotrach, % Blood Gas Oxygen Liter Flow 80 Blood Gas Oxygen Percent Given 80 100 Blood Gas Vent Rate (0-30) (0-30) (0-30) Blood Gas Tidal Volume ML (0-1200) ML (0-1200) ML (0-1200) History of Present Illness Reid Xie is a 71 y/o male who's been seeing Dr. Larios in outpatient setting for LLE cellulitis. He completed a 10-day course of Cipro BID on about . Lasix was also increased at that time to 40 mg in the morning and 20 mg at noon. His leg improved somewhat, but is still slightly red, swollen, and just recently became warmer to the touch. A venous doppler 01/25/17 ago was negative for DVT. He's also been following with [facility], for peripheral edema and shortness of breath and hyponatremia. Na on 02/01/17 was 128 and he was started on salt tabs. Labs repeated on 02/08, and Na dropped to 117. He was sent to the ED for further eval. There, he was slightly hyperkalemic with K of 5.1. He was hypoxic with RA sat of 86%. BNP was 451. WBC was normal. CXR was neg. for pneumonia or failure. He was admitted to inpatient status for further eval and treatment of severe and symptomatic hyponatremia and hypoxic resp failure. LOS is expected to exceed 2 overnights. Patient and ROS: Increased dizziness for 2 days. Increased drowsiness, no confusion. Poor coordination, but his thinks this is because he dozes off so easily. No falls. Shortness of breath off and on for a couple of weeks, but has been worse for the last 2-3 days. Worse with activity, but SOA even at rest. + PND. Productive cough of clear phlegm x2-3 days. Chest pain with cough. No palpitations. Chronic low back pain with chronic numbness to left leg. No unilateral weakness. No vision changes. No dysphagia. No congestion, fever, sore throat. Good PO intake. No abd pain, n/v/d/c. No urinary changes. Hospital Course 02/08/17 1. Severe symptomatic hyponatremia. * Patient's symptoms include dizziness, extreme fatigue, and coordination problems. * Sodium level was 117 on admission. Will trend every 6 hours. * Causes still unknown, though the increase in Lasix dose could be a contributing factor. * Hold Salt tabs. * Check urine sodium and urine creatinine levels. * Would consider starting normal saline, but given his hypoxia. I am a bit hesitant at this time. * Check TSH. * Consider tests for adrenal insufficiency, although no history and no recent steroids. 2. Acute hypoxic respiratory failure with room air saturation of 86%. * Start DuoNeb treatments every 6 hours. * Well obtain echocardiogram given his history of coronary artery disease. * Repeat venous Doppler of left lower extremity. One done on 01/25/17 was negative. 3. Recent outpatient treatment for left lower extremity cellulitis and edema. * Completed course of Cipro 500 mg twice a day 10 days over the weekend. Redness is improved, but still swollen and warm and slightly red. * Lasix dose was increased to 40 mg in the morning and 20 mg at noon. * Consider alternate diuretic 4. Chest pain associated with cough. * Trend troponin, echo as above. * Monitor on telemetry. * History of coronary artery disease - continue with dual antiplatelet therapy, statin, beta diego and VERN inhibitor. 02/09/2017 I saw Reid Oneil today when I was called to the room by his nurse. He had another episode of desaturation or he was down in the low 80s for his O2 saturation even knowing it was on 3 L of oxygen. He was confused and unresponsive. He could certainly answer no questions. Quick physical exam today showed heart had a regular rate and rhythm, in [facility] med had no bruising and no rash, lungs no wheezing when I listen to them extremities show trace edema We got a blood gas which showed his knee was acidotic at about 7.1 a pH and had 120 CO2, PO2 was 90 his directly about transferring him and she chose [facility] to have him transferred to. He was sent down to CCU work he was intubated and placed on a propofol drip to maintain sedation while he goes to [place]. Also a comminuted because his systolic pressure dropped down to 90 and I ordered a 250 cc fluid bolus from his diabetes he would get the pressure back up over 100. The excepting doctor was Dr. Sly CONNELLY. We never could get his sodium above 117 but his O2 saturation became a larger issue today. 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 He had been suffering from hyponatremia for about 10 or 12 days if not longer came to our ER so we really started out way behind the progress of his problem. His prognosis is fair his diagnoses remain as follows 1. Failure, 2. Hypoxemia, reviewed. In treatment, 4. Hypertension, chronic 5. Dyslipidemia, and 6. Obesity. Problems: (1) Hyponatremia Status: Resolved (2) Hypoxia Status: Acute Assessment & Plan: RA sats 86% on ED arrival (3) CAD (coronary artery disease) Status: Chronic (4) Hypertension Status: Chronic (5) OA (osteoarthritis) Status: Chronic (6) Dyslipidemia Status: Chronic (7) Normocytic anemia Status: Chronic (8) Obesity (BMI 30-39.9) Status: Chronic Code Status Full Code Home Meds Reported Medications Sodium Chloride (Sodium Chloride) 1 G Tablet, 1 GM PO QID 02/08/17 Hydrocodone/Apap (Coulters 10-325 Tablet) 10-325 Tablet, 1 TAB PO Q4HR Y for PAIN 02/08/17 Furosemide (Furosemide) 20 Mg Tablet, 20 MG PO NOON 02/08/17 Lisinopril (Lisinopril) 2.5 Mg Tablet, 2.5 MG PO DAILY 02/08/17 Metoprolol Tartrate (Metoprolol Tartrate) 25 Mg Tablet, 12.5 MG PO BID 02/08/17 Cinnamon Bark (Cinnamon) 500 Mg Capsule, 500 MG PO DAILY 02/08/17 Furosemide (Furosemide) 20 Mg Tablet, 40 MG PO QAM 02/08/17 Multivitamin (Multivitamins) 1 Each Tablet, 1 TAB PO DAILY 02/08/17 Cholecalciferol (Vitamin D3) (Vitamin D) 1,000 Unit Capsule, 1000 UNIT PO HS 02/08/17 Clopidogrel Bisulfate (Clopidogrel) 75 Mg Tablet, 75 MG PO DAILY 02/08/17 Aspirin *EC* (Low Dose Aspirin EC) 81 Mg Tablet., 81 MG PO DAILY 10/07/16 Atorvastatin Calcium (Lipitor) 40 Mg Tablet, 40 MG PO HS 04/28/16 Face to Face Encounter I met with patient on the day of dismissal and discussed follow up appointments , medications, and safety plan. Discharge Disposition Patient is being transferred by ambulance, EMS ambulance from [place] to [facility]. He'll be placed in ICU there, I am fairly sure. EMILY RIOS DO Feb 09, 2017 14:08
--- NOTE | 2017-02-09 14:10 | NUR ---
SEDATION PROPOFOL DRIP INFUSING WITH INITIAL DOSE AT 3.5 CC PER HR, WITH RAPID INCREASE IN RATE TO CONTROL MOVEMENTS. CHEWS TUBE, ORAL AIRWAY PLACED. PROPOFOL RATE AT 14 CC PER HR.
--- NOTE | 2017-02-09 14:11 | DI ---
Indication: ITS.REASON: intubation PROCEDURE: CHEST 1 VIEW: Encounter: Initial Comparison: February 08, 2017 Findings: New endotracheal tube in place with the tip projecting approximately 3.5 cm above the julee. Overlying monitoring leads. Developing hypoinflation with bilateral basilar airspace opacities and small pleural effusions. No pneumothorax. Heart size and mediastinal contours are grossly stable. Impression: 1. New endotracheal tube tip projects in appropriate position. 2. Developing basilar atelectasis and small effusions. .
--- NOTE | 2017-02-09 14:14 | NUR ---
Report to [facility] Report called to Nickie at [facility] at this time.
--- NOTE | 2017-02-09 14:44 | NUR ---
DISMISSED VIA EMS TO [facility]. VS STABLE AT THIS TIME. ROCURONIUM ADMINISTERED BY EMS CREW PRIOR TO TRANSFER TO [facility].
--- NOTE | 2017-02-10 07:20 | ECHOF ---
ECHOCARDIOGRAM REPORT DATE OF PROCEDURE February 08, [address] Michael Rios This is a two-dimensional echo with spectral Doppler, color-flow and M-mode. It was obtained in a patient with hypoxia. Left atrium is dilated. Left ventricle end-diastolic dimension is at the upper limits of normal. Left ventricle wall thickness is increased. LV systolic function is normal with ejection fraction of 65%. Right atrium is dilated. Right ventricle is normal. Aortic root dimension is normal. Mitral annulus is calcified. Mitral valve leaflets appeared to be normal. Aortic valve appears to be normal. Tricuspid valve shows mild tricuspid regurgitation with moderate pulmonary hypertension with estimated pulmonary artery systolic pressure of 58. Pulmonary valve shows no pulmonary insufficiency. There is no pericardial effusion. IMPRESSION 1. Normal LV systolic function with ejection fraction of 65%. 2. Left ventricular hypertrophy. 3. Biatrial dilation. 4. Mitral annulus calcification. 5. Mild tricuspid regurgitation with moderate pulmonary hypertension with estimated pulmonary artery systolic pressure of 58. MTDD
== END 2017-02-09 15:15 | disposition short-term general hospital (02) | DRG 640 ==
LOC: ED 12:15 → OBSVTOIN 14:35 → MED 14:35 → EDHOLD 14:35 → UNDOADMOB 14:35 → CCU 18:00 → MED 18:17 → CCU 02-09 13:13
PROC: 5A1935Z Respiratory Ventilation, Less than 24 Consecutive Hours (ICD-10-PCS; principal; 2017-02-08)
PROC: 0BH17EZ Insertion of Endotracheal Airway into Trachea, Via Natural or Artificial Opening (ICD-10-PCS; 2017-02-08)
DX: E87.1 Hypo-osmolality and hyponatremia (principal); J96.01 Acute respiratory failure with hypoxia; M47.16 Other spondylosis with myelopathy, lumbar region; I25.10 Atherosclerotic heart disease of native coronary artery without angina pectoris; I10 Essential (primary) hypertension; E78.5 Hyperlipidemia, unspecified; D64.9 Anemia, unspecified; E66.9 Obesity, unspecified; Z79.82 Long term (current) use of aspirin; Z98.1 Arthrodesis status; Z68.38 Body mass index [BMI] 38.0-38.9, adult; Z87.891 Personal history of nicotine dependence
CPT/HCPCS: 36000; 36415; 36600; 80048; 80053; 82530; 82570; 82803; 82948; 83880; 84295; 84300; 84443; 84484; 85025; 85610; 85730; 93005; 93306; 94002; 94640; 94664

== ENCOUNTER → 2017-02-08 | Outpatient (CLI) | payer BC, MEDICARE ==
[~2017-02-08] MED LIST changes: +CHOL100055 PO; +CINN500C14 PO; +CLOP75TA33 PO; +FURO20TA4 PO; +HYDR-3995 PO; +LISI2.5T2 PO; +METO25TA6 PO; +MULT1TAB69 PO; +SODI1TAB3 PO
[2017-02-08 12:01] LABS: PROBNP 465 PG/ML (0-175)
== END ==
LOC: LABN 11:32
PROVIDERS: ATTEND Physician Assistant Medical
DX: R06.09 Other forms of dyspnea (principal); R60.9 Edema, unspecified
CPT/HCPCS: 83880; 84484

== ENCOUNTER 2018-05-02 05:24 | Inpatient (IN) ==
[2018-05-02 05:40] VITALS: BMI 39.5
[2018-05-02] MEDS ORDERED: DEXAMETHASONE 4 MG/ML INJECTION IVP ONE (06:00)
[2018-05-02] MEDS ORDERED: FAMOTIDINE PB 20 MG/50 ML BAG IV ONE (06:00)
[2018-05-02] MEDS ORDERED: ONDANSETRON 4 MG/2 ML INJECTION IVP ONE (06:00)
[2018-05-02] MEDS ORDERED: LIDOCAINE 1% (10mg/ml) 2mL INJ PF SDV ID ONE (06:00)
[2018-05-02] MEDS ORDERED: METOCLOPRAMIDE 10mg/2ml INJECTION IVP ONE (06:00)
[2018-05-02] MEDS ORDERED: ACETAMINOPHEN 500 MG TABLET PO ONE (06:00)
[2018-05-02] MEDS: LR 1,000 ML IV SCH ×2 (06:05→08:18)
[2018-05-02] MEDS: NOZIN NASAL SWAB NAS SCH ×6 (06:11→21:25)
[2018-05-02] MEDS ORDERED: CEFAZOLIN 1 G INJECTION IVP ONE (06:12)
[2018-05-02] MEDS ORDERED: ROCURONIUM 50 MG/5 ML INJECTION IVP ONE (06:36)
[2018-05-02] MEDS ORDERED: PROPOFOL 20 ML ONE (06:36)
[2018-05-02] MEDS ORDERED: PROPOFOL 500 MG/50 ML VIAL ONE ×2 (06:36→08:41)
[2018-05-02] MEDS ORDERED: KETAMINE 500 MG/10 ML INJECTION ONE (06:37)
[2018-05-02] MEDS ORDERED: FentaNYL 100 MCG/2 ML INJECTION ONE (06:37)
[2018-05-02] MEDS ORDERED: LIDOCAINE 2% (100mg/5mL) 5ml PF SDV ONE ×2 (06:43→07:24)
[2018-05-02] MEDS ORDERED: ONDANSETRON 4 MG/2 ML INJECTION ONE (06:44)
[2018-05-02] MEDS ORDERED: SEVOFLURANE 250ml LIQUID IH ONE (06:45)
[2018-05-02] MEDS ORDERED: VANCOMYCIN 1,000 MG INJECTION ONE (06:49)
[2018-05-02] MEDS ORDERED: BUPIVACAINE 0.75%/DEXTROSE 8.5% SPINAL 2 ML AMPULE IJ ONE (06:52)
[2018-05-02] MEDS ORDERED: LIDOCAINE 1% (10mg/ml) 30ml SDV INJ ONE (06:53)
[2018-05-02] MEDS ORDERED: VANCOMYCIN 1,000 MG INJECTION IAR ONE (06:54)
[2018-05-02] MEDS ORDERED: ANESTHESIA MIXTURE 50 ML IV ONE (07:00)
[2018-05-02] MEDS ORDERED: EPINEPHrine PF 0.25 MG, BUPIVACAINE 0.25% PF 30 ML, KETOROLAC INJ 60 MG in NS 30 ML OPSITE ONE (08:00)
[2018-05-02] MEDS ORDERED: LACRI-LUBE EYE OINT 3.5gm ONE (08:00)
[2018-05-02] MEDS ORDERED: FentaNYL 100 MCG/2 ML INJECTION IVP PRN (08:14)
[2018-05-02] MEDS ORDERED: ONDANSETRON 4 MG/2 ML INJECTION IVP PRN ×2 (08:14→10:50)
[2018-05-02] MEDS ORDERED: ROPIVACAINE 0.5% (5mg/ml) 30ml INJ ONE (08:35)
--- NOTE | 2018-05-02 09:02 | Operative Note ---
- Procedure Preoperative Diagnosis: Right knee primary degenerative joint disease Postoperative Diagnosis: Same as preoperative diagnosis. Surgeon: Tha Tadeo MD Energy Assistant: Patricia Arreaga Complications: None. Anesthesia: Spinal. Estimated Blood Loss: See Anesthesia Record. Fluids: Please see Anesthesia Record. Description of Procedure: Mr. Xie and his right knee were identified and marked in the preoperative holding area. He was brought back to the operating suite. Spinal anesthetic was administered and he was placed supine on the operating table. The right lower extremity was prepped and draped in my normal sterile fashion. Timeout was performed. The [employer] robotic arm was used during the surgery. He had a partially correctable varus deformity with a 5 flexion contracture. A standard anterior midline incision followed by medial parapatellar arthrotomy was performed. Anterior fat pad and meniscus were removed. The patella was everted and a patellar osteotomy was performed leaving 14 mm of bone. He had severe disease in the medial compartment and to a lesser extent in the patellofemoral compartment. Tibial and femoral arrays and checkpoints were placed both within the original incision. The bone was then registered with the [employer] robot. Osteophytes were removed and gaps were captured both 90 and 0 with correction. The tibia was placed and 1 of varus. The femoral component was moved anteriorly and distally to obtain 18 mm gaps throughout. The [employer] robotic arm was then used to assist with the bone cuts. Posterior osteophytes and remaining meniscus were removed. Trial components were placed. We used a 5 femur and a 5 tibia with a 9 mm spacer and a 32 patella. He tracked well and was well balanced throughout range of motion. The arrays were then removed and the knee exsanguinated and the tourniquet inflated to 250 mmHg. The tibia was then stamped the proper rotation. I then cemented the components into place and allowed them to cure in extension. During this time the tourniquet was let down and hemostasis was obtained with electrocautery. After the cement had cured the knee again was taken through range of motion and was well balanced and tracked well. 1 g of TXA was allowed to sit in the wound for 5 minutes and then suctioned out. After a final thorough irrigation with normal saline as well as Betadine 1 g vancomycin powder was placed into the knee joint. We then closed the capsule with #1 Vicryl. I then left my registered dental assistant rda closed the subcutaneous tissue with both 2-0 Vicryl in an interrupted fashion. The subcutaneous tissue closed with a robby Monoderm followed by Dermabond. Mediplex dressing will be placed and the patient will be taken back to the recovery room under the care of anesthesia.
[2018-05-02] MEDS ORDERED: TRANEXAMIC ACID 1,000 MG/10 ML VIAL TOP ONE (09:03)
[2018-05-02] MEDS ORDERED: SALINE FLUSH 10ml SYRINGE IV PRN (09:03)
--- NOTE | 2018-05-02 09:55 | Anesthesia Procedure Note ---
Peripheral Nerve Blockade - Procedure Physician: Roberth Tadeo MD Date: 05/02/18 Discussion: Discussed risks/options/alternatives of anesthesia and questions answered. Patient consents. Nursing pain assessment noted. Block Start: 09:39 Block Stop: 09:44 Block Employed: Adductor Canal-Right Indication: Post-Operative Pain Approach: Right Side Confirmed Position: Supine Patient: Consent, Risks/Benefits Discussed, Informed, Post Block Act. Discussed IV Sedation: No (post spinal anesthesia) Initial Vital Signs: Temperature 98.3 F 05/02/18 05:34 Temperature Source Oral 05/02/18 05:34 Pulse Rate 67 05/02/18 05:34 Respiratory Rate 16 05/02/18 05:34 Blood Pressure 152/73 H 05/02/18 05:34 Blood Pressure Mean 99 05/02/18 05:34 Blood Pressure Position Sitting 05/02/18 05:34 Pulse Oximetry 91 05/02/18 05:34 Oxygen Delivery Method 05/02/18 05:34 Oxygen Flow Rate 2 05/02/18 05:34 Post Vital Signs: Temperature 98.3 F 05/02/18 05:34 Pulse Rate 56 L 05/02/18 06:02 Respiratory Rate 16 05/02/18 05:34 Blood Pressure 152/73 H 05/02/18 05:34 Pulse Oximetry 91 05/02/18 05:34 Ultrasound Used?: Yes - Nerve Simulator Muscle Response: No Paresthesia/Pain: None - Injectate Ropivacaine (%): 0.5 Ropivacaine (mL): 15 Was Epi 1:200,000 Used?: No Injection: Injection made incrementally with constant monitoring and aspiration every 5 ml
--- NOTE | 2018-05-02 09:56 | Anesthesia Procedure Note ---
Peripheral Nerve Blockade - Procedure Physician: Roberth Tadeo MD Date: 05/02/18 Discussion: Discussed risks/options/alternatives of anesthesia and questions answered. Patient consents. Nursing pain assessment noted. Block Start: 09:45 Block Stop: 09:50 Block Employed: Infiltration between Popliteal Artery and Capsule of the Knee- Right Indication: Post-Operative Pain Approach: Right Side Confirmed Position: Supine Patient: Consent, Risks/Benefits Discussed, Informed, Post Block Act. Discussed IV Sedation: No (post spinal anesthesia) Sedation: Awake Initial Vital Signs: Temperature 98.3 F 05/02/18 05:34 Temperature Source Oral 05/02/18 05:34 Pulse Rate 67 05/02/18 05:34 Respiratory Rate 16 05/02/18 05:34 Blood Pressure 152/73 H 05/02/18 05:34 Blood Pressure Mean 99 05/02/18 05:34 Blood Pressure Position Sitting 05/02/18 05:34 Pulse Oximetry 91 05/02/18 05:34 Oxygen Delivery Method 05/02/18 05:34 Oxygen Flow Rate 2 05/02/18 05:34 Post Vital Signs: Temperature 98.3 F 05/02/18 05:34 Pulse Rate 56 L 05/02/18 06:02 Respiratory Rate 16 05/02/18 05:34 Blood Pressure 152/73 H 05/02/18 05:34 Pulse Oximetry 91 05/02/18 05:34 Prep: Chlorhexadine/ETOH, Sterile Technique Ultrasound Used?: Yes - Nerve Simulator Muscle Response: No Paresthesia/Pain: None - Injectate Ropivacaine (%): 0.5 Ropivacaine (mL): 15 Was Epi 1:200,000 Used?: No Injection: Injection made incrementally with constant monitoring and aspiration every 5 ml
--- NOTE | 2018-05-02 10:12 | XRay Report ---
Indication: postoperative image PROCEDURE: XR knee RT 2V: Encounter: Initial Comparison: July 27, 2017 Findings: Postoperative changes of right total knee replacement are seen. There is expected postoperative subcutaneous gas. No evidence of hardware failure or acute fracture. No retained radiopaque surgical instruments or sponges. Overlying material causing artifact. Impression: New right total knee prosthesis without evidence of immediate complication. .
--- NOTE | 2018-05-02 10:14 | Anesthesia Preoperative Report ---
Anesthesia Preoperative Record - Date and Time Date: 05/02/18 Preoperative Diagnosis: Rt TKA M17.11 NPO Since Date: 05/01/18 NPO Since Time: 23:00 Allergies/Adverse Reactions: Allergies Allergy/AdvReac Type Severity Reaction Status Date / Time amoxicillin Allergy Severe rash Verified 05/01/18 14:22 furosemide [From Lasix] AdvReac Severe Hyponatremi Verified 05/01/18 14:22 a morphine AdvReac Severe LETHARGY Verified 05/01/18 14:22 - Vital Signs Vital Signs: Temperature 98.3 F 05/02/18 05:34 Pulse Rate 56 L 05/02/18 06:02 Respiratory Rate 16 05/02/18 05:34 Blood Pressure 152/73 H 05/02/18 05:34 Pulse Oximetry 91 05/02/18 05:34 Height and Weight: Height 1.75 m Weight 121.5 kg Body Mass Index 39.5 - Medications Inpatient Medications: Current Medications Cefazolin Sodium (Kefzol 1 Gm Vial) 3 g IVP PREOP ONE Stop: 05/02/18 06:13 Famotidine/Sodium Chloride (Pepcid Premix) 20 mg in 50 mls @ 100 mls/hr IV PREOP ONE Stop: 05/02/18 06:29 Last Admin: 05/02/18 06:10 Dose: 100 mls/hr Lactated Ringer's (Lactated Ringers) 1,000 mls @ 75 mls/hr IV .[id number] [facility] Last Admin: 05/02/18 06:05 Dose: 75 mls/hr Epinephrine HCl 0.25 mg/Bupivacaine HCl 30 ml/Ketorolac Tromethamine 60 mg/ Sodium Chloride 62.25 mls @ 1 mls/hr OPSITE INTRAOP ONE PRN Reason: Protocol Stop: 05/04/18 22:14 Isopropyl Alcohol (Nozin Nasal Swab) 1 each LEVAR Q1M [facility] Stop: 05/02/18 09:18 Last Admin: 05/02/18 06:17 Dose: 1 each Sodium Chloride (Iv Flush) 10 - 80 ml IV PRN PRN PRN Reason: Flushing Tranexamic Acid (Cyklokapron) 1,000 mg TOP INTRAOP ONE Stop: 05/02/18 09:04 Home Medications: Home Medications Medication Instructions Recorded Confirmed Type Atorvastatin [Lipitor] 40 mg PO HS #0 04/28/16 05/02/18 History Aspirin [Low Dose Aspirin EC] 81 mg PO DAILY #0 10/07/16 05/02/18 History Mapap Extra Strength 500 mg tablet 1,000 mg PO BID PRN tab 07/27/17 05/02/18 History Nitrostat (nitroglycerin) 0.4 mg 0.4 mg SL Q5M PRN 07/27/17 05/02/18 History sublingual tablet Vitamin D3 (cholecalciferol) 1,000 1,000 unit PO HS cap 07/27/17 05/02/18 History unit capsule torsemide 10 mg tablet 10 mg PO QAM 07/27/17 05/02/18 History Docusate Sodium [Colace] 1 cap PO BID PRN 11/22/17 05/02/18 History Metoprolol Tartrate [Lopressor] 12.5 mg PO BIDWM 03/06/18 05/02/18 History Multivitamin [One Daily] 1 each PO DAILY 03/06/18 05/02/18 History Hydrocodone/APAP 5/325 [[place] 1 - 2 tab PO Q4H PRN #10 tab 04/07/18 05/02/18 Rx 5/325] Famotidine [Acid Controller] 20 mg PO DAILY 04/25/18 05/02/18 History - Medical History Respiratory: Reports: Sleep Apnea (uses CPAP), Other (chronic hypoxemic respiratory failure) Cardiovascular: Reports: Congestive Heart Failure, Coronary Artery Disease (CABG ), Hypertension, Myocardial Infarction ([id number]->CABG) Gastrointestional: Reports: Gastroesophageal Reflux Disease, Morbid Obesity Neuro/Musculoskeletal: Reports: Back Problems Renal/Endocrine: Reports: Other (hyponatremia from Lasix, sees Dr Short) Other History: DENIES: Anesthesia Reactions, Now, Blood Transfusions, Chemotherapy , Cancer, Hemophilia, Malignant Hyperthermia, Sickle Cell Disease, Other - Surgical History HEENT Surgeries: Reports: Tonsillectomy Cardiac Surgeries/Treatments: Reports: Cardiac Catheterization (with cardiac stent 2013- 2016), Coronary Artery Bypass Graft (triple bypass 10-28-18) Respiratory Surgery/Treatments: Reports: BiPAP Use, CPAP Use, Oxygen Administration (currently- 2L at all times) GI Surgery/Treatments: Reports: Colonoscopy Musculoskeletal Surgery/Tx: Reports: Other (Lt PKA; lumbar surgery w/ screws) Reproductive Surgery/Treatment: Reports: Vasectomy, Other (hydrocelectomy) Anesthesia Reactions: None Hx Family Anesthesia Reaction: No History of Motion Sickness: No - Social History Smoking Status: Former smoker Pack-years: 12 Substance Use Type: does not use Alcohol Intake Frequency: does not drink - Pertinent Findings Laboratory: CBC and BMP 05/02/18 05:52 BMP 05/02/18 05:52 Sodium 143 Potassium 4.3 Chloride 100 Carbon Dioxide 31 H BUN 19.0 Creatinine 0.6 L Glucose 117 H Calcium 9.2 EKG: Sinus Bradycardia EKG Ectopy: Occasional PVC - Physical Exam Respiratory Exam: Present: lungs clear, bilateral breath sounds equal Cardiovascular Exam: Present: regular rate and rhythm - Airway Assessment Mallampati Score: III TMD: 3 Fingerbreadths Neck Extension: fair Overall Assessment: may be difficult intubation - ASA ASA Score: 3 - Plan Anesthesia: General TIVA, Regional Block Peripheral Nerve Block: Adductor Canal-Right, Infiltration between Popliteal Artery and Capsule of the Knee-Right - Discussion Discussion: Discussed risks/options/alternatives of anesthesia and questions answered. Patient consents. Nursing pain assessment noted. Attestation Statement: Prior to the delivery of any anesthetic medication, I examined the patient, developed the plan, obtained the patient's consent and discussed the risk and benefits of the procedure with the patient/guardian.
--- NOTE | 2018-05-02 10:29 | Anesthesia Postoperative Note ---
- Date and Time Date: 05/02/18 Time: 10:28 - Status Patient Participated in Evaluation: Patient Participated in Person Vital Signs: Temperature 98.1 F 05/02/18 09:33 Pulse Rate 62 05/02/18 10:20 Respiratory Rate 23 05/02/18 10:23 Blood Pressure 113/70 05/02/18 10:20 Pulse Oximetry 95 05/02/18 10:20 Respiratory Function: Airway Patent, Regular Respirations Cardiovascular Function: Regular Pulse Mental Status: Alert and Oriented Pain Intensity: 4 Hydration: IV Infusing Complications During Recover: None Apparent - Follow-Up Instructions Instructions: Per Surgeon
[2018-05-02] MEDS ORDERED: NITROGLYCERIN 0.4 MG SUBLINGUAL TABLET SL PRN (10:50)
[2018-05-02] MEDS ORDERED: LORazepam 1 MG TABLET PO PRN (10:50)
[2018-05-02] MEDS ORDERED: DiphenhydrAMINE 50 MG/ML INJECTION IVP PRN (10:50)
[2018-05-02] MEDS ORDERED: NOZIN NASAL SWAB NAS ONE (10:50)
[2018-05-02] MEDS ORDERED: DiphenhydrAMINE 25 MG CAPSULE PO PRN (10:50)
[2018-05-02] MEDS: NS 1,000 ML IV SCH (10:58)
[2018-05-02] MEDS: TRAMADOL 50 MG TABLET PO PRN (11:34)
--- NOTE | 2018-05-02 11:35 | Consult Note ---
Consult Information - Data of Consult Consult date: 05/02/18 Requesting Physician: Roberth Tadeo MD Primary Care Provider: Rangel Wilcox MD - Consult Narrative Reason for consult: Medical management History of present illness: Reid Xie is a 73 year old male who is seen in consultation from Dr. Tadeo for postop hypoventilation requiring placement of an oral airway. Preop, he was cleared by Dr. Damon and Dr. Lopez. He was admitted on 05/02/18 for for an elective right total knee replacement. Anesthesia = spinal block. He uses BiPAP HS and has oxygen available for daytime use if needed. Mr. Xie was seen postop and in his room on the surgical floor. He was A&O x3 and BiPAP was on. He reports being in good health recently and positive ROS included occasional exertional dyspnea, fatigue, knee pain. He also notes a dry mouth since surgery. He recently had right carpal tunnel release and excision of a ganglion cyst, and these incisions are healing well. He has tolerated sips of water without nausea or vomiting. He hopes to be discharged home rather than going to a rehab facility. Past Medical History Medical History: Medical History (Last Updated 05/02/18 @ 15:37 by Chrissy Roberts MD) AMANDA treated with BiPAP (Acute) Hypertension (Acute) Arthritis (Acute) High cholesterol (Acute) Heart attack (Acute) Chest pain (Acute) CAD (coronary artery disease) Chronic respiratory failure with hypoxia Diastolic CHF Medical History Updates: Chronic hypoxemic respiratory failure. AMANDA, on BiPAP. CHF - diastolic. Coronary artery disease. Hyperlipidemia. Hypertension. Obesity Surgical History: Right total knee replacement 05/02/18 Dr. Tadeo. Right carpal tunnel release and ganglion cyst excision 04/07/18 Dr. Tadeo. CABG x3, 10/2017. Heart catheter in 2013 with primary stent to LAD. Heart catheterization in 2017 showing multivessel disease. Echocardiogram in 2016: EF 63%, mild LVH, diastolic dysfunction, PAP 38. Lt knee partial replacement. Testicles drained , 2014. Colonoscopy 2011. tonsillectomy and adenoidectomy. Back surgery, 2015 Family History: Family History (Last Reviewed 05/01/18 @ 14:22 by Ju Jain [facility]) Father Emphysema/COPD Brother Heart attack Cancer of colon Mother Arthritis Family History Updates: Brother - heart disease Family History: As Above - Social History Smoking status: Former smoker (remote history, quit smoking 40 years ago) Packs-years: 12 Substance use type: does not use Alcohol intake frequency: does not drink Household members: spouse Social history: PCP _ Dr. Wilcox Review of Systems All systems PM: 10-point ROS was reviewed, no additional remarkable complaints except - Constitutional Constitutional: Present: fatigue (occasionally) - EENMT Eyes: Absent: change in vision Balance: Absent: vertigo Nose: Absent: obstruction Mouth/Throat: Present: dry mouth (after surgery). Absent: sore throat - Cardiovascular Cardiovascular: Present: dyspnea on exertion (occasionally) - Respiratory Respiratory: Absent: cough - Gastrointestinal Gastrointestinal: Absent: abdominal pain, constipation, diarrhea, nausea - Genitourinary Genitourinary: Absent: dysuria, hematuria - Musculoskeletal Musculoskeletal: Present: as per HPI - Integumentary/Breasts Integumentary: Present: wounds (healing incisions to right hand/wrist from recent surgery) - Neurological Neurological: Present: abnormal gait (d/t painful right knee). Absent: dizziness, frequent falls, headache(s), numbness, paresthesias, weakness - Psychiatric Psychiatric: Absent: depression - Endocrine Endocrine: Absent: palpitations - Hematologic/Lymphatic Hematologic/Lymphatic: Absent: easy bleeding - Allergic/Immunologic Allergic/Immunologic: Absent: seasonal rhinorrhea Medications Home Medications Medication Instructions Recorded Confirmed Type Atorvastatin [Lipitor] 40 mg PO HS #0 04/28/16 05/02/18 History Aspirin [Low Dose Aspirin EC] 81 mg PO DAILY #0 10/07/16 05/02/18 History Mapap Extra Strength 500 mg tablet 1,000 mg PO BID PRN tab 07/27/17 05/02/18 History Nitrostat (nitroglycerin) 0.4 mg 0.4 mg SL Q5M PRN 07/27/17 05/02/18 History sublingual tablet Vitamin D3 (cholecalciferol) 1,000 1,000 unit PO HS cap 07/27/17 05/02/18 History unit capsule torsemide 10 mg tablet 10 mg PO QAM 07/27/17 05/02/18 History Docusate Sodium [Colace] 1 cap PO BID PRN 11/22/17 05/02/18 History Metoprolol Tartrate [Lopressor] 12.5 mg PO BIDWM 03/06/18 05/02/18 History Multivitamin [One Daily] 1 each PO DAILY 03/06/18 05/02/18 History Hydrocodone/APAP 5/325 [[place] 1 - 2 tab PO Q4H PRN #10 tab 04/07/18 05/02/18 Rx 5/325] Famotidine [Acid Controller] 20 mg PO DAILY 04/25/18 05/02/18 History Allergies Allergy/AdvReac Type Severity Reaction Status Date / Time amoxicillin Allergy Severe rash Verified 05/01/18 14:22 furosemide [From Lasix] AdvReac Severe Hyponatremi Verified 05/01/18 14:22 a morphine AdvReac Severe LETHARGY Verified 05/01/18 14:22 Exam Vital Signs: Temperature 97.0 F 05/02/18 11:02 Pulse Rate 65 05/02/18 11:02 Respiratory Rate 16 05/02/18 11:02 Blood Pressure 109/64 05/02/18 11:02 Pulse Oximetry 96 05/02/18 11:02 Height/Weight/BMI: Height 1.75 m Weight 121.5 kg Body Mass Index 39.5 - Constitutional Present: no acute distress, well nourished, well developed, obese - Routine HEENT Exam Head: Present: normocephalic Eye: Present: PERRL. Absent: conjunctival icterus, scleral injection ENT: Present: mucous membranes dry - Routine Neck Exam Present: supple Comments: thick, short neck - Routine Respiratory Exam Present: CTA bilaterally Comments: On BiPAP - Routine Cardiovascular Exam Present: RRR, S1, S2 - Routine Abdominal Exam Present: soft, normoactive bowel sounds, non distended, non tender - Routine Extremities Exam Present: no edema Comments: dressing and polar pack applied to right knee - Routine Skin Exam Present: intact, dry, warm - Routine Neurological Exam Present: alert, oriented X3, CN II-XII intact, vision grossly intact, hearing grossly intact, normal speech. Absent: altered mental status, facial asymmetry - Routine Psychiatric Exam Present: normal affect, normal thought process, cooperative Results - Labs CBC & Chem 7: 05/02/18 05:52 Assessment and Plan (1) AMANDA treated with BiPAP Current visit: No Status: Acute Assessment and Plan: ASSESSMENT Right total knee replacement 05/02/18 Dr. Tadeo Chronic hypoxemic respiratory failure. AMANDA, on BiPAP. Obesity hypoventilation syndrome. CHF. Coronary artery disease - on ASA Hyperlipidemia - on atorvastatin Hypertension - on metoprolol, torsemide PLAN Recovering well postop. Continue BiPAP as needed and daytime O2 to maintain sats >90. BP elevated postop 161/74 - monitor for now. Sat = 96% on BiPAP. BMP was drawn today - unremarkable. H&H ordered for am. Continue home meds for CAD, CHF, hyperlipidemia, CHF. Postop orders, pain control, PT/OT per attending. Thank you for this consult. DVT Prophylaxis: SCD's GI Prophylaxis: Pepcid Resuscitation Status: Full Code - Physician Narrative Physician: Chrissy Roberts MD Narrative: Date: 05/02/18 Time: 0 I have independently evaluated and examined this patient. I reviewed the chart, the patient's history, and the [employer]/PA's documented findings as above. We discussed and formulated the assessment and plan as above with additions as below: Mr. Xie was seen postoperatively. He ambulated earlier and reports no real discomfort in his right knee at this time. He denies dyspnea and oxygen saturation is 98% on usual 3 L flow rate. He denies any recent respiratory symptoms, chest pain, or neurological changes. NAD, alert, fluent speech Respirations nonlabored, good airflow, faint inspiratory crackles one half of the posterior lung espinal Regular rhythm, S1-S2 Preoperative hemoglobin 13.1 on 02/02/18 EKG scanned into electronic record-sinus rhythm with no apparent ST/T-wave changes, probable old posterior RI my review. AMANDA/[facility]-continue home BiPAP; HCO3 at baseline level. Blood gas if any change in neurological status. CAD with 3 vessel CABG 10/30-clinically stable, Dr. Damon is patient's managing clinical technician. Hospital Course Summary Disclaimer: The visit summary below is not to be considered part of the above Progress Note. Hospital Course: 05/02 Recovering well postop. Continue BiPAP as needed and daytime O2 to maintain sats >90. BP elevated postop 161/74 - monitor for now. Sat = 96% on BiPAP. BMP was drawn today - unremarkable. H&H ordered for am. Continue home meds for CAD, CHF, hyperlipidemia, CHF. Postop orders, pain control, PT/OT per attending.
[2018-05-02] MEDS: ACETAMINOPHEN 325 MG TABLET PO SCH ×3 (13:38→20:47)
[2018-05-02] MEDS ORDERED: DEXAMETHASONE 20 MG/5 ML INJECTION IVP ONE (14:30)
[2018-05-02] MEDS: CEFAZOLIN 3 G in NS 100 ML IV SCH ×2 (14:34→22:54)
[2018-05-02] MEDS: DOCUSATE SODIUM 100 MG CAPSULE PO SCH (20:46)
[2018-05-02] MEDS: ASPIRIN *EC* 81 MG TABLET PO SCH (20:47)
[2018-05-02] MEDS ORDERED: SENNOSIDES 8.6 MG TABLET PO SCH (21:00)
[2018-05-02] MEDS ORDERED: ATORVASTATIN 40 MG TABLET PO SCH (21:00)
[2018-05-02] MEDS ORDERED: FALL RISK - PHARMACY CONSULT MC ONE (21:48)
[2018-05-03] MEDS: NS 1,000 ML IV SCH (00:35)
[2018-05-03] MEDS: NOZIN NASAL SWAB NAS SCH ×2 (05:25→14:02)
[2018-05-03 07:35] VITALS: RESP 16
[2018-05-03] MEDS: ASPIRIN *EC* 81 MG TABLET PO SCH (08:06)
[2018-05-03] MEDS: DOCUSATE SODIUM 100 MG CAPSULE PO SCH (08:06)
[2018-05-03] MEDS: ACETAMINOPHEN 325 MG TABLET PO SCH ×2 (08:06→14:02)
--- NOTE | 2018-05-03 08:13 | Orthopedic Progress Note ---
Date: Date: 05/03/18 Time: 0800 Subjective/Severity of Illness: Reid is sitting up in the chair this morning. States he did well overnight. Has been up ambulating, and pain has been well controlled. Has chronic hypoxic respiratory failure and wears 2L NC continuous with Bipap at night. Denies any SOA, CP, nausea, tolerating PO well. Hgb 11.4. Orthopedic Exam Vital signs: Temperature 96.9 F 05/03/18 07:33 Pulse Rate 69 05/03/18 07:33 Respiratory Rate 16 05/03/18 07:33 Blood Pressure 130/70 05/03/18 07:33 Pulse Oximetry 97 05/03/18 07:33 - Constitutional General Appearance: Present: alert, orientated x3, cooperative, well developed, well nourished - Respiratory Exam Present: CTA bilaterally, non-labored - Cardiovascular Exam Present: Regular Rate/Rhythm, pedal pulses intact - Extremities Exam Present: no edema - Dressing Dressing: dry, intact, bloody drainage Comments: Mepilex right knee - Integumentary Exam Present: pink, warm, dry - Neurological Exam Present: intact to light touch, no deficits - Psychiatric Exam Present: alert - Labs Result Diagrams: 05/03/18 04:05 05/03/18 04:05 Abnormal lab results 05/03/18 05/03/18 Range/Units 04:05 04:05 Hgb 11.4 L (13.5-17.5) GM/DL Hct 33.5 L (41-53) % Creatinine 0.6 L (0.8-1.5) mg/dL BUN/Creatinine Ratio 30 H (6-26) RATIO Glucose 140 H (75-110) MG/DL H & H 05/03/18 Range/Units 04:05 Hgb 11.4 L (13.5-17.5) GM/DL Hct 33.5 L (41-53) % Orthopedic Assessment and Plan (1) Primary osteoarthritis of right knee Status: Acute Assessment and Plan: Current anti-coagulation protocol with ASA 81mg BID for VTE prophylaxis. SCD's for added protection. PT/OT services to improve independent function. Discharge Planning per Case Management. Chronic Hypoxic Respiratory Failure- stable on home 2LNC, Bipap at night. Medical management per hospitalist - Anticoagulation Therapy Anticoagulation: ASA 81 mg PO BID x6 weeks - Additional Diagnoses Hypertension: stable, resume medications CAD: no active chest pain Anemia: no intervention required, patient was asymptomatic, labs monitored Hospital Course Summary Disclaimer: The visit summary below is not to be considered part of the above Progress Note. Hospital Course: 05/02 Recovering well postop. Continue BiPAP as needed and daytime O2 to maintain sats >90. BP elevated postop 161/74 - monitor for now. Sat = 96% on BiPAP. BMP was drawn today - unremarkable. H&H ordered for am. Continue home meds for CAD, CHF, hyperlipidemia, CHF. Postop orders, pain control, PT/OT per attending.
--- NOTE | 2018-05-03 08:31 | Discharge Summary ---
Orthopedic Discharge Info Date of admission: 05/02/18 Anticipated date of discharge: 05/03/18 Primary care physician: Rangel Wilcox MD Attending Physician: Roberth Tadeo MD Consults: 05/02/18 05:30 Consult to Anesthesiology [CONS] Routine Reason For Exam: Preoperative Assessment 05/02/18 09:28 Physician Consult [CONS] Routine Consulting Provider: Chrissy Roberts Reason For Exam: Medical Management Consult Ordering Provider has Notified Campus Recruiting Intern: Yes 05/02/18 10:50 Case Management Consult [CONS] Routine Reason For Exam: Discharge Planning DME-Walker [CONS] Routine Height: 5 ft 9 in Weight: 121.5 kg Total Joint Outpatient Therapy [CONS] Routine Comment: Remove dressing in 2 weeks - Discharge Diagnosis (1) Primary osteoarthritis of right knee Status: Acute - Procedures Procedures: Procedures Gait Training/Functional Ambulation Treatment using Assistive, Adaptive, Supportive or Protective Equipment (10/07/16) Home Management Treatment (10/07/16) Therapeutic Exercise Treatment of Musculoskeletal System - Whole Body (10/07/16) - Laboratory Result Diagrams: 05/03/18 04:05 05/03/18 04:05 Laboratory: Abnormal lab results 05/03/18 05/03/18 Range/Units 04:05 04:05 Hgb 11.4 L (13.5-17.5) GM/DL Hct 33.5 L (41-53) % Creatinine 0.6 L (0.8-1.5) mg/dL BUN/Creatinine Ratio 30 H (6-26) RATIO Glucose 140 H (75-110) MG/DL H & H 05/03/18 Range/Units 04:05 Hgb 11.4 L (13.5-17.5) GM/DL Hct 33.5 L (41-53) % Orthopedic Discharge HPI - HPI Comments This patient was admitted for elective surgical tx of end stage degenerative joint disease that failed to respond to conservative treatment. Further details of this is found in the admission H&P. Orthopedic Hospital Course Hospital course: 05/03/18 08:27 After appropriate preoperative clearance and signing of operative consent, the patient was given IV antibiotics, according to orthopedic protocol. The patient was taken to the operating room and underwent elective right total knee arthroplasty. Following surgery, antibiotics were discontinued less than 24 hours according to joint protocol. Appropriate anticoagulants were initiated with ASA 81mg BID and SCDs added for DVT prevention. The dressing was clean, dry, and intact. Pain control was obtained via multimodal approach. Bowel motivation addressed with scheduled and PRN medications. Early mobilization was initiated through PT services. Discharge arrangements made by a collaborative effort between the patient and Case Management. After ambulation post op day 1 patient had increased bloody drainage, artie placed and hemostasis achieved. Instructed to monitor drainage and notify ortho with any concerns- see discharge instructions. Continue BiPAP as needed and daytime O2 to maintain sats >90. HTN, CAD, Hyperlipidemia, and CHF home medications restarted. Patient denied any CP, SOA during hospital stay. Anemia- stable, no acute intervention required. Schedule follow up with PCP in 1 week for medical check. Follow-up is scheduled in 2-3 weeks. Discharge instructions given by orthopedic providers and nursing staff at discharge. Discharge condition was good. 05/03/18 16:14 05/03/18 16:15 Care extended to > 2 midnight stays?: No Discharge Plan - Med Rec/Dispo Referrals/Follow Up: Rangel Wilcox MD [Primary Care Provider] - 05/09/18 9:00 am Prem Instructions: [facility] Ortho Postop Instructions Additional Instructions: [facility] ON 05/05/2018 AT 12:00PM FOR PHYSICAL THERAPY EVAL. PLEASE COMPLETE THE PAPERWORK IN THE [facility] FOLDER PRIOR TO THE APPOINTMENT. PHONE [phone] Prescriptions: New Aspirin *EC* [Ecotrin] 81 mg PO BID tab Docusate Sodium [Colace] 100 mg PO BID cap Milk of Magnesia [Mom] 30 ml PO DAILY udc Tramadol [Ultram] 50 - 100 mg PO Q6H PRN #60 tab PRN Reason: Pain Acetaminophen [Tylenol] 650 mg PO QID tab PEG 3350 17gm PACKET [Miralax] 17 gm PO DAILY packet Continue Aspirin [Low Dose Aspirin EC] 81 mg PO DAILY #0 Docusate Sodium [Colace] 1 cap PO BID PRN PRN Reason: Constipation Multivitamin [One Daily] 1 each PO DAILY Famotidine [Acid Controller] 20 mg PO DAILY Atorvastatin [Lipitor] 40 mg PO HS #0 Metoprolol Tartrate [Lopressor] 12.5 mg PO BIDWM Hydrocodone/APAP 5/325 [[place] 5/325] 1 - 2 tab PO Q4H PRN #10 tab PRN Reason: Pain Nitrostat (nitroglycerin) 0.4 mg sublingual tablet 0.4 mg SL Q5M PRN PRN Reason: Chest Pain Vitamin D3 (cholecalciferol) 1,000 unit capsule 1,000 unit PO HS cap Mapap Extra Strength 500 mg tablet 1,000 mg PO BID PRN tab PRN Reason: Pain torsemide 10 mg tablet 10 mg PO QAM - Disposition 01 Discharged Home, Self-Care - Dismissal Complete Discharge Instructions are:: Incomplete
[2018-05-03] MEDS ORDERED: FAMOTIDINE 20 MG TABLET PO SCH (09:00)
[2018-05-03] MEDS ORDERED: POLYETHYL GLYCOL 3350 17gm PACKET PO SCH (09:00)
[2018-05-03] MEDS ORDERED: TORSEMIDE 20 MG TABLET PO SCH (09:00)
[2018-05-03] MEDS ORDERED: SENNOSIDES 8.6 MG TABLET PO PRN (09:24)
--- NOTE | 2018-05-03 10:40 | Progress Note ---
- Date 05/03/18 Subjective: Reid states that he rested well last night. He is noticing some urinary urgency followed by retention, which is a new symptom. He states that Dr. Gilmore told him in the past that he has an enlarged prostate but he's never had any urinary retention. Dr. Tadeo was also in the room and states that he has a little bit of oozing from his knee incision, which will be addressed a little later this morning. He denies feeling short of breath or having any chest pain. His heart rate decreased into the upper 40s while sleeping, but he denied any symptoms with this and he has never been told previously that he had a low heart rate. He does take a beta diego. He is hopeful for discharge home later today. He states his right leg feels heavy, but he denies paresthesias. Objective Vital signs: Temperature 96.9 F 05/03/18 07:33 Pulse Rate 69 05/03/18 07:33 Respiratory Rate 16 05/03/18 07:33 Blood Pressure 130/70 05/03/18 07:33 Pulse Oximetry 96 05/03/18 09:26 Height/Weight/BMI: Height 1.75 m Weight 121.5 kg Body Mass Index 39.5 - Constitutional Present: no acute distress, well nourished, well developed, obese - Routine HEENT Exam Head: Present: normocephalic Eye: Present: PERRL. Absent: conjunctival icterus, scleral injection ENT: Present: mucous membranes moist, oropharynx clear - Routine Respiratory Exam Present: CTA bilaterally - Routine Cardiovascular Exam Present: RRR, S1, S2 - Routine Abdominal Exam Present: soft, normoactive bowel sounds, non distended, non tender - Routine Extremities Exam Present: no edema Comments: Polar Pack on right knee - Routine Skin Exam Present: dry, warm - Routine Neurological Exam Present: alert, oriented X3, CN II-XII intact, moving all extremities, vision grossly intact, hearing grossly intact, normal speech. Absent: sensory deficit , motor deficit, altered mental status, facial asymmetry - Routine Psychiatric Exam Present: normal affect, normal thought process, cooperative Results - Labs CBC & Chem 7: 05/03/18 04:05 05/03/18 04:05 Assessment and Plan (1) AMANDA treated with BiPAP Current visit: No Status: Acute Assessment and Plan: ASSESSMENT Right total knee replacement 05/02/18 Dr. Tadeo Chronic hypoxemic respiratory failure. AMANDA, on BiPAP. Obesity hypoventilation syndrome. CHF. Coronary artery disease - on ASA Hyperlipidemia - on atorvastatin Hypertension - on metoprolol, torsemide PLAN Check UA. Due to symptoms of urinary urgency and retention. He may need further outpatient evaluation for BPH. Asymptomatic bradycardia overnight with heart rate down to 47. Discussed with Sarah Ritchie APRN. No changes recommended. Postop labs are stable. Hemoglobin slightly decreased at 11.4. Continue home O2 and BiPAP settings. Follow-up with cardiology and pulmonology as scheduled. Medically stable for discharge. DVT Prophylaxis: other (ASA BID) GI Prophylaxis: Pepcid Resuscitation Status: Full Code - Physician Narrative Physician: Chrissy Roberts MD Narrative: Date: 05/03/18 Time: 1600 I have independently evaluated and examined this patient. I reviewed the chart, the patient's history, and the CAT SWAMPER/PA's documented findings as above. We discussed and formulated the assessment and plan as above with additions as below: Mr. Lopez was seen with his at the bedside. He's doing well and has ambulated already this morning during the stairs. He anticipates going home. He denies lightheadedness or dyspnea. NAD, alert, respirations nonlabored with good airflow, breath sounds clear. Overnight oximetry obtained based on RT protocol and tracing reviewed by myself- saturations well-maintained with current BiPAP settings, 3 desaturations recorded all night each with saturation dropping only to 88%. Copy of oximetry tracing made for patient to take to next appointment with sleep medicine physician at next appointment. Telemetry reviewed-minor bradycardia while sleeping. Cardiology aware/tely reviewed with Sarah Ritchie APRN. Hospital Course Summary Disclaimer: The visit summary below is not to be considered part of the above Progress Note. Hospital Course: 05/02 Recovering well postop. Continue BiPAP as needed and daytime O2 to maintain sats >90. BP elevated postop 161/74 - monitor for now. Sat = 96% on BiPAP. BMP was drawn today - unremarkable. H&H ordered for am. Continue home meds for CAD, CHF, hyperlipidemia, CHF. Postop orders, pain control, PT/OT per attending.
[2018-05-03] MEDS: TRAMADOL 50 MG TABLET PO PRN (10:47)
[2018-05-03 11:48] VITALS: BP 142/62; PULSE 75; TEMP 97.4; O2SAT 94
[2018-05-04] MEDS ORDERED: BISACODYL 10 MG SUPPOSITORY RECTALLY SCH (20:00)
== END 2018-05-03 17:02 | disposition home or self-care (01) | DRG 470 ==
LOC: SRG 05:24 → SUR 05:24 → NMC.PERIOP 05:26 → EDSTATUS 07:30 → EDSDCBED 10:48 → SRG 10:48 → SUR 05-03 17:02 → UNDODEPSDC 05-05 08:57
PROVIDERS: ADMIT Orthopaedic Surgery; ATTEND Orthopaedic Surgery